=== PATIENT | male | born 1940 | race Caucasian/White ===

== ENCOUNTER 2016-08-29 13:06 | Inpatient (IN) | payer MEDICARE, MEDICAID ==
[2016-08-29 13:35] VITALS: BMI 29.9
[2016-08-29 13:57] LABS: BLOOD UREA NITROGEN 16 MG/DL (9-20); CALCULATED OSMOLALITY 273 MOs/Kg (270-290); CHLORIDE 100 mEq/L (98-107); GLUCOSE 176 MG/DL (70-99); SODIUM LEVEL 139 mEq/L (137-146); TOTAL PROTEIN 7.9 G/DL (6.3-8.2)
[2016-08-29 14:05] LABS: LEUKOCYTES/URINE NEG (NEGATIVE); NITRITE/URINE NEG (NEGATIVE); RBC/URINE 0-2 (0-2); URINE OCCULT BLOOD 1+ (NEG/TRACE); WBC/URINE 0-2 (0-2)
[2016-08-29 14:27] LABS: SEG NEUTROPHIL 83 % (45-76)
[2016-08-29] MEDS ORDERED: ONDANSETRON HCL 4 MG/2 ML VIAL IV ONE (16:07)
[2016-08-29] MEDS ORDERED: NS 1,000 ML IV ONE ×3 (16:07→19:25)
[2016-08-29] MEDS ORDERED: HYDROmorphone 1 MG INJECTION IV ONE (16:07)
--- NOTE | 2016-08-29 16:43 | EDPRACDOC ---
- General Information Information Source: Patient Mode Of Arrival: Car - History of Present Illness Onset: TODAY Pain Location: Reports: Epigastric, RUQ Pain Context: Reports: Spontaneous Pain Severity: Severe Pain Quality: Reports: Cramping, Sharp, Stabbing Pain Radiation: Reports: No Radiation Modifying Factors: improves with: Nothing Associated Signs & Symptoms: Reports: Nausea, Vomiting, Diarrhea <Jojo Burger - Last Filed: 08/29/16 19:24> <Junior Wu - Last Filed: 08/29/16 19:37> - General Information Chief Complaint: Abdominal Pain Stated Complaint: NAUSEA,VOMITING,WEAKNESS Time Seen by Provider: 08/29/16 16:02 Home Medications: Home Medications Hydrochlorothiazide 25 mg PO DAILY 12/02/15 Hydrocodone Bit/Acetaminophen [[place] 5-325 Tablet] 1 each PO Q4H #30 tab Metoprolol Tartrate 25 mg PO BID 12/02/15 Pantoprazole Sodium [Protonix] 40 mg PO DAILY 12/02/15 Tamsulosin HCl [Flomax] 0.4 mg PO DAILY 12/02/15 Sulfamethoxazole/Trimethoprim [Bactrim Ds Tablet] 1 tab PO BID #14 tab 08/17/16 Tramadol HCl [Ultram] 50 mg PO Q6H #14 tab 08/17/16 Allergies/Adverse Reactions: Allergies Allergy/AdvReac Type Severity Reaction Status Date / Time Sulfa (Sulfonamide Allergy Rash-Genera Verified 08/29/16 13:34 Antibiotics) lized - History of Present Illness HPI: PT PRESENTS TODAY WITH PERIUMBILICAL/RUQ PAIN THAT BEGAN THIS MORNING WITH ASSOCIATED N/V. SOME DIARRHEA. DENIES FEVER, CP, SHOB, DYSURIA. NO PMH OF ABDOMINAL SURGERIES. (Jojo Burger) ED Past Medical History - History Reviewed Yes Nurses notes reviewed and agree except as marked - Patient Medical History Cardiac History: Reports: Hypertension, Congestive Heart Failure GI/ History: Reports: Gastroesophageal Reflux Psychological History: Denies: Depression Systemic History: Reports: Cancer (skin cancer right ear) - Social Medical History Smoking Status: Former smoker <Jojo Burger - Last Filed: 08/29/16 19:24> EDM Review of Systems - Review of Systems ROS Negative Except as Marked: Yes All systems reviewed and were negative except as marked Constitutional: No Symptoms Reported Respiratory: No Symptoms Reported Cardiovascular: No Symptoms Reported Gastrointestinal: Nausea, Pain, Vomiting Genitourinary: No Symptoms Reported Neurological: No Symptoms Reported Musculoskeletal: No Symptoms Reported Integumentary: No Symptoms Reported <Jojo Burger - Last Filed: 08/29/16 19:24> - Physical Exam Constitutional: Alert (Awake), No apparent distress Oriented to: Time, Person, Place - HEENT Head: Normal Eye Exam: Normal Neck: Normal, Denies Pain, Midline - Respiratory/Cardiovascular Respiratory: Normal - CTA Cardiovascular: Normal - GI Auscultation: Decreased Palpation: Other (NOTED HERNIA TO MID ABDOMEN; REDUCIBLE; ALONG THE LINEA ALBA) Tenderness: Moderate, RUQ, Periumbilical Lacy's Sign: Positive - Musculoskeletal Back: Normal Extremities: Normal - Integumentary Skin: Jaundice (?) Lymphatics: Normal - Neurologic Cerebellar: Normal Mood Description: Normal Thought: Coherent Perception: Normal <Jojo Burger - Last Filed: 08/29/16 19:24> - Re-evaluation Re-evaluation 2 Re-evaluation Time: 19:24 - Results 08/29/16 13:32 08/29/16 13:32 <Jojo Burger - Last Filed: 08/29/16 19:24> - Re-evaluation Re-evaluation 1 Re-evaluation Time: 17:30 - Results 08/29/16 13:32 08/29/16 13:32 <Junior Wu - Last Filed: 08/29/16 19:37> - Re-evaluation Re-evaluation 2 PT HAS BEEN EASILY MANAGED BY 1 MG OF DILAUDID. NO VOMITING WHILE HERE. (Jojo Burger) Re-evaluation 1 ABD SOFT. NON-TENDER. (Junior Wu) - Results WBC 19.1 xk/uL (3.8-10.8) H 08/29/16 13:32 RBC 4.99 xM/uL (4.70-6.10) 08/29/16 13:32 Hgb 14.8 g/dL (14.0-18.0) 08/29/16 13:32 Hct 43.7 % (42-52) 08/29/16 13:32 MCV 88 fL (80-94) 08/29/16 13:32 MCH 29.7 pg (27-32) 08/29/16 13:32 MCHC 34.0 g/dl (33-36) 08/29/16 13:32 RDW 13.9 % (11.5-14.5) 08/29/16 13:32 Plt Count 230 xk/uL (130-400) 08/29/16 13:32 MPV 8.0 fL (7.4-10.4) 08/29/16 13:32 Neut % (Auto) Cancelled 08/29/16 13:32 Lymph % (Auto) Cancelled 08/29/16 13:32 [place] % (Auto) Cancelled 08/29/16 13:32 Eos % (Auto) Cancelled 08/29/16 13:32 Baso % (Auto) Cancelled 08/29/16 13:32 Absolute Neuts (auto) Cancelled 08/29/16 13:32 Absolute Lymphs (auto) Cancelled 08/29/16 13:32 Seg Neuts % (Manual) 83 % (45-76) H 08/29/16 13:32 Band Neutrophils % 15 % (0-5) H 08/29/16 13:32 Lymphocytes % (Manual) 1 % (17-44) L 08/29/16 13:32 Monocytes % (Manual) 1 % (0-10) 08/29/16 13:32 Absolute Neutrophils 18.72 xk/uL (1.7-8.2) H 08/29/16 13:32 Absolute Lymphocytes 0.19 xk/uL (0.65-4.75) L 08/29/16 13:32 Platelet Estimate Norm (NORMAL) 08/29/16 13:32 RBC Morphology Norm 08/29/16 13:32 Sodium 139 mEq/L (137-146) 08/29/16 13:32 Potassium 3.1 mEq/L (3.5-5.1) L 08/29/16 13:32 Chloride 100 mEq/L (98-107) 08/29/16 13:32 Carbon Dioxide 22 mMOL/L (22-33) 08/29/16 13:32 Anion Gap 20 mEq/L (8-16) H 08/29/16 13:32 BUN 16 MG/DL (9-20) 08/29/16 13:32 Creatinine 0.80 MG/DL (0.66-1.25) 08/29/16 13:32 Estimated GFR (MDRD) > 60 mL/min (>=60) 08/29/16 13:32 Glucose 176 MG/DL (70-99) H 08/29/16 13:32 Calculated Osmolality 273 MOs/Kg (270-290) 08/29/16 13:32 Lactic Acid 4.7 mEq/L (0.7-2.1) H* 08/29/16 16:35 Calcium 9.0 MG/DL (8.4-10.2) 08/29/16 13:32 Total Bilirubin 3.5 MG/DL (0.2-1.3) H 08/29/16 13:32 AST 531 IU/L (17-59) H 08/29/16 13:32 ALT 376 IU/L (21-72) H 08/29/16 13:32 Alkaline Phosphatase 124 IU/L (50-160) 08/29/16 13:32 Ammonia < 9.0 umol/L (9.0-30.0) L 08/29/16 16:35 Total Protein 7.9 G/DL (6.3-8.2) 08/29/16 13:32 Albumin 4.3 G/DL (3.5-5.0) 08/29/16 13:32 Lipase 17123 U/L (23-300) H 08/29/16 13:32 Urine Color Yellow 08/29/16 13:40 Urine Clarity Clear 08/29/16 13:40 Urine pH 5.0 (5.0-8.0) 08/29/16 13:40 Ur Specific [place] 1.005 (1.003-1.035) 08/29/16 13:40 Urine Protein Neg (NEG/TRACE) 08/29/16 13:40 Urine Glucose (UA) Neg (NEGATIVE) 08/29/16 13:40 Urine Ketones Neg (NEGATIVE) 08/29/16 13:40 Urine Occult Blood 1+ (NEG/TRACE) H 08/29/16 13:40 Urine Nitrite Neg (NEGATIVE) 08/29/16 13:40 Urine Bilirubin Neg (NEGATIVE) 08/29/16 13:40 Urine Urobilinogen <2.0 MG/DL (0-1) 08/29/16 13:40 Ur Leukocyte Esterase Neg (NEGATIVE) 08/29/16 13:40 Urine RBC 0-2 (0-2) 08/29/16 13:40 Urine WBC 0-2 (0-2) 08/29/16 13:40 Ur Epithelial Cells Occ 08/29/16 13:40 Urine Bacteria Few (NEG/FEW) 08/29/16 13:40 Urine Mucus Occ (NEG/OCC) 08/29/16 13:40 Lab Results 08/29/16 08/29/16 08/29/16 16:35 16:35 13:40 WBC RBC Hgb Hct MCV MCH MCHC RDW Plt Count MPV Neut % (Auto) Lymph % (Auto) [place] % (Auto) Eos % (Auto) Baso % (Auto) Absolute Neuts (auto) Absolute Lymphs (auto) Seg Neuts % (Manual) Band Neutrophils % Lymphocytes % (Manual) Monocytes % (Manual) Absolute Neutrophils Absolute Lymphocytes Platelet Estimate RBC Morphology Sodium Potassium Chloride Carbon Dioxide Anion Gap BUN Creatinine Estimated GFR (MDRD) Glucose Calculated Osmolality Lactic Acid 4.7 H* Calcium Total Bilirubin AST ALT Alkaline Phosphatase Ammonia < 9.0 L Total Protein Albumin Lipase Urine Color Yellow Urine Clarity Clear Urine pH 5.0 Ur Specific [place] 1.005 Urine Protein Neg Urine Glucose (UA) Neg Urine Ketones Neg Urine Occult Blood 1+ H Urine Nitrite Neg Urine Bilirubin Neg Urine Urobilinogen <2.0 Ur Leukocyte Esterase Neg Urine RBC 0-2 Urine WBC 0-2 Ur Epithelial Cells Occ Urine Bacteria Few Urine Mucus Occ 08/29/16 08/29/16 08/29/16 13:32 13:32 13:32 WBC 19.1 H RBC 4.99 Hgb 14.8 Hct 43.7 MCV 88 MCH 29.7 MCHC 34.0 RDW 13.9 Plt Count 230 MPV 8.0 Neut % (Auto) Cancelled Lymph % (Auto) Cancelled [place] % (Auto) Cancelled Eos % (Auto) Cancelled Baso % (Auto) Cancelled Absolute Neuts (auto) Cancelled Absolute Lymphs (auto) Cancelled Seg Neuts % (Manual) 83 H Band Neutrophils % 15 H Lymphocytes % (Manual) 1 L Monocytes % (Manual) 1 Absolute Neutrophils 18.72 H Absolute Lymphocytes 0.19 L Platelet Estimate Norm RBC Morphology Norm Sodium 139 Potassium 3.1 L Chloride 100 Carbon Dioxide 22 Anion Gap 20 H BUN 16 Creatinine 0.80 Estimated GFR (MDRD) > 60 Glucose 176 H Calculated Osmolality 273 Lactic Acid Calcium 9.0 Total Bilirubin 3.5 H AST 531 H ALT 376 H Alkaline Phosphatase 124 Ammonia Total Protein 7.9 Albumin 4.3 Lipase 73476 H Urine Color Urine Clarity Urine pH Ur Specific [place] Urine Protein Urine Glucose (UA) Urine Ketones Urine Occult Blood Urine Nitrite Urine Bilirubin Urine Urobilinogen Ur Leukocyte Esterase Urine RBC Urine WBC Ur Epithelial Cells Urine Bacteria Urine Mucus (Jojo Burger) (Junior Wu) <Jojo Burger - Last Filed: 08/29/16 19:24> - Departure Yes I personally saw and evaluated the patient. Disposition: Admit IP To This Hospital Decision to Admit Time: 19:37 Decision to admit date: 08/29/16 Decision to admit: from ED - Physician Consulted Hospitalist Time Called: 19:37 Provider Called: Timo Gutierrez Time [employer] Equipment Engineer Returned Call: 19:37 <Junior Wu - Last Filed: 08/29/16 19:37> - Departure Condition: Stable Final Diagnosis: Acute pancreatitis Qualifiers: Pancreatitis type: unspecified pancreatitis type Acute pancreatitis complication: unspecified Qualified Code(s): K85.90 - Acute pancreatitis without necrosis or infection, unspecified
--- NOTE | 2016-08-29 17:58 | DIRPT ---
CLINICAL DATA: Acute right upper quadrant abdominal pain. EXAM: CT ABDOMEN AND PELVIS WITH CONTRAST TECHNIQUE: Multidetector CT imaging of the abdomen and pelvis was performed using the standard protocol following bolus administration of intravenous contrast. CONTRAST: 100 mL of Isovue 370 intravenously. COMPARISON: CT scan of March 28, 2012. FINDINGS: Visualized lung bases are unremarkable. No significant osseous abnormality is noted. No gallstones are noted. Stable left hepatic cysts are noted. The spleen appears normal. Mild inflammatory changes are noted around the pancreas suggesting possible pancreatitis. Adrenal glands appear normal. Bilateral nonobstructive nephrolithiasis is noted. Bilateral simple renal cysts are noted. No hydronephrosis or renal obstruction is noted. 8 mm calculus is noted at right ureterovesical junction resulting in minimal dilatation of distal right ureter. The appendix appears normal. Atherosclerosis of abdominal aorta is noted without aneurysm formation. Mildly dilated proximal small bowel loop is noted which may represent focal ileus. This was present to some degree on prior exam. There is no definite evidence of bowel obstruction. Diverticulosis of descending and sigmoid colon is noted without inflammation. Urinary bladder appears normal. Prostatic calcifications are noted. No adenopathy is noted. IMPRESSION: Bilateral nonobstructive nephrolithiasis is noted. No hydronephrosis or renal obstruction is noted. 8 mm calculus is noted at right ureterovesical junction which results in minimal dilatation of distal right ureter. Atherosclerosis of abdominal aorta is noted without aneurysm formation. Diverticulosis of descending and sigmoid colon is noted without inflammation. Mild proximal small bowel dilatation is noted most consistent with ileus. Mild inflammatory changes are noted around the pancreas suggesting pancreatitis. No pseudocyst formation is seen at this time. Electronically Signed By: Cristóbal Alfredo Jr, M.D. On: 08/29/2016 17:55
[2016-08-29] MEDS ORDERED: Pharmacy Review for Metformin - IV Contrast Given SCH (18:00)
--- NOTE | 2016-08-29 18:36 | DIRPT ---
CLINICAL DATA: Right upper quadrant abdominal pain for 1 day. Acute pancreatitis on CT from earlier today. EXAM: US ABDOMEN LIMITED - RIGHT UPPER QUADRANT COMPARISON: CT abdomen/pelvis from earlier today. FINDINGS: Gallbladder: There are several tiny shadowing layering gallstones in the gallbladder measuring up to 3 mm in size. No gallbladder wall thickening, pericholecystic fluid or sonographic Lacy sign. Common bile duct: Diameter: 3 mm Liver: Liver parenchyma is diffusely markedly echogenic with posterior acoustic attenuation, in keeping with severe diffuse hepatic steatosis. There is a minimally complex 2.4 x 1.7 x 2.4 cm liver cyst in the lateral segment left liver lobe with thin internal septation. There is a separate minimally complex 1.9 x 1.5 x 1.4 cm liver cyst in the posterior lateral segment left liver lobe with thin internal septation. There is a separate minimally complex 1.6 x 1.6 x 1.4 cm liver cyst with thin internal septation in the lateral segment left liver lobe. No additional liver lesions are detected, noting decreased sensitivity in the setting of an echogenic liver. Incidentally noted is a simple 3.3 cm parapelvic renal cyst in the lower right renal sinus. IMPRESSION: 1. Cholelithiasis. No evidence of acute cholecystitis. 2. No biliary ductal dilatation. 3. Severe diffuse hepatic steatosis. 4. Benign-appearing minimally complex left liver cysts. 5. Incidental simple right renal cyst. Electronically Signed By: Jony Choudhary M.D. On: 08/29/2016 18:34
--- NOTE | 2016-08-29 21:47 | HISTPHYS ---
- Chief Complaint abdominal pain - History of Present Illness PRIMARY CARE PROVIDER: Vivienne Gale HPI: The patient is a 76 yo man who presents with abdominal pain. It started after he was taking an antibiotics. His left pinky finger got stuck in car door and had an injury, red and swollen. Started on an antibiotic he thinks it was Bactrim and took it for 8 days. Then started getting a rash with red dots all over. [place] weak. Developed abdominal pain. Onset: last few days. Duration: intermittent. Location: epigastric. Radiation: to back. Character: 8/10, sharp. Alleviated by: Nothing. Exacerbated by: Nothing. Associated Symptoms: Nausea. Vomiting. No diarrhea, constipation, or bloody stool. Possibly chills. No fever. No diaphoresis. Treatments: none at home except usual medications. Patient does not drink any alcohol now, he quit drinking many years ago. - Medical History Cardiac History: Reports: Hypertension, Congestive Heart Failure GI/ History: Reports: Gastroesophageal Reflux Systemic History: Reports: Cancer (skin cancer right ear) Psychological History: Denies: Depression - Medictions/Allergies Allergies Sulfa (Sulfonamide Antibiotics) Allergy (Verified 08/29/16 13:34) Rash-Generalized Current Medication List: Reviewed Home Medications Hydrochlorothiazide 25 mg PO DAILY 12/02/15 Metoprolol Tartrate 25 mg PO BID 12/02/15 Pantoprazole Sodium [Protonix] 40 mg PO DAILY 12/02/15 Tamsulosin HCl [Flomax] 0.4 mg PO DAILY 12/02/15 - Family History Reports: Hypertension (Father), Cancer (Grandmother), Stroke (Mother), Cardiac Disorders (Father) - Social History Smoking Status: Former smoker Social History: Denies: Alcohol Use, Substance Use Disorder - Review of Systems GENERAL: Possibly chills. No fever. No diaphoresis. Positive for fatigue/ malaise. HEENT: No ear pain or discharge. No nasal discharge or bleeding. No throat pain or swelling. No eye pain or eye redness. RESPIRATORY: No cough, wheezing, or shortness of breath. CARDIOVASCULAR: No chest pain or palpitations. GI: Abdominal pain, nausea, vomiting. No diarrhea, constipation, or bloody stool. NEUROLOGICAL: No headache or focal weakness. INTEGUMENT: no rashes, itching, or lesions. LYMPHATIC SYSTEM: no lymph node swelling or pain. MUSCULOSKELETAL: no pain or joint swelling. GENITOURINARY: No dysuria or hematuria. ENDOCRINE: No polyuria or polydipsia. HEME: No chronic anemia, bleeding, or easy bruising. - Physical Exam Vital Signs: Initial Vitals Temperature 98.6 F 08/29/16 13:28 Pulse Rate 108 08/29/16 13:28 Respiratory Rate 20 08/29/16 13:28 Blood Pressure 121/66 08/29/16 13:28 Pulse Oxygen Saturation 94 08/29/16 13:28 Vital Signs - 24 hr 08/29/16 08/29/16 08/29/16 13:28 16:28 17:08 Temperature 98.6 F Pulse Rate 108 96 96 Respiratory 20 20 20 Rate Blood Pressure 121/66 147/66 128/69 Pulse Oxygen 94 96 96 Saturation 08/29/16 08/29/16 08/29/16 17:34 18:37 19:37 Temperature Pulse Rate 92 96 94 Respiratory 18 18 18 Rate Blood Pressure 124/67 128/63 121/64 Pulse Oxygen 95 94 95 Saturation 08/29/16 20:37 Temperature Pulse Rate 96 Respiratory 20 Rate Blood Pressure 119/58 L Pulse Oxygen 94 Saturation Weight: 97.5 kg Height: 5 feet 11 inches BMI: 30 - Other Exam Other Exam Findings: GENERAL: Ill-appearing, well nourished, in acute distress. HEENT: Normocephalic, atraumatic; pupils equal and round. Nares patent, without discharge or bleeding. No oropharyngeal lesions or erythema. Mucous membranes are dry. NECK: is supple, no masses, trachea midline. RESPIRATORY: Clear to auscultation bilaterally. Chest wall movements are symmetric. No use of accessory muscles to breathe. No wheezing, rales, rhonchi. CARDIOVASCULAR: Normal S1, S2. Murmur 2/6 systolic. No rubs, or gallops. PMI non -displaced. Carotids: no carotid bruits. No bradycardia or tachycardia. DP pulses 2+ bilaterally. GI: soft, protuberant but non-distended. hypoactive bowel sounds. No hepatosplenomegaly. Epigastric and right upper quadrant tenderness. INTEGUMENT: Clean, dry, and intact. No rashes. No lesions. MUSCULOSKELETAL: Moving all extremities. No cyanosis. No clubbing. Edema: none bilaterally. NEUROLOGICAL: Cranial nerves 2-12 grossly intact. Motor 4/5 throughout. Reflexes : 2+ bilaterally. Babinski: toes downgoing bilaterally. Intact Finger to nose. Sensory grossly intact to light touch. Intact rapid alternating movements bilaterally. No pronator drift. PSYCHIATRIC: Fully oriented. Normal and appropriate affect. LYMPHATIC: No cervical lymphadenopathy. No supraclavicular lymphadenopathy. - Lab Results Laboratory Results - last 24 hr 08/29/16 08/29/16 08/29/16 13:32 13:32 13:32 WBC 19.1 H RBC 4.99 Hgb 14.8 Hct 43.7 MCV 88 MCH 29.7 MCHC 34.0 RDW 13.9 Plt Count 230 MPV 8.0 Neut % (Auto) Cancelled Lymph % (Auto) Cancelled [place] % (Auto) Cancelled Eos % (Auto) Cancelled Baso % (Auto) Cancelled Absolute Neuts (auto) Cancelled Absolute Lymphs (auto) Cancelled Seg Neuts % (Manual) 83 H Band Neutrophils % 15 H Lymphocytes % (Manual) 1 L Monocytes % (Manual) 1 Absolute Neutrophils 18.72 H Absolute Lymphocytes 0.19 L Platelet Estimate Norm RBC Morphology Norm Sodium 139 Potassium 3.1 L Chloride 100 Carbon Dioxide 22 Anion Gap 20 H BUN 16 Creatinine 0.80 Estimated GFR (MDRD) > 60 Glucose 176 H Calculated Osmolality 273 Lactic Acid Calcium 9.0 Total Bilirubin 3.5 H AST 531 H ALT 376 H Alkaline Phosphatase 124 Ammonia Total Protein 7.9 Albumin 4.3 Lipase 38272 H Urine Color Urine Clarity Urine pH Ur Specific [place] Urine Protein Urine Glucose (UA) Urine Ketones Urine Occult Blood Urine Nitrite Urine Bilirubin Urine Urobilinogen Ur Leukocyte Esterase Urine RBC Urine WBC Ur Epithelial Cells Urine Bacteria Urine Mucus 08/29/16 08/29/16 08/29/16 13:40 16:35 16:35 WBC RBC Hgb Hct MCV MCH MCHC RDW Plt Count MPV Neut % (Auto) Lymph % (Auto) [place] % (Auto) Eos % (Auto) Baso % (Auto) Absolute Neuts (auto) Absolute Lymphs (auto) Seg Neuts % (Manual) Band Neutrophils % Lymphocytes % (Manual) Monocytes % (Manual) Absolute Neutrophils Absolute Lymphocytes Platelet Estimate RBC Morphology Sodium Potassium Chloride Carbon Dioxide Anion Gap BUN Creatinine Estimated GFR (MDRD) Glucose Calculated Osmolality Lactic Acid 4.7 H* Calcium Total Bilirubin AST ALT Alkaline Phosphatase Ammonia < 9.0 L Total Protein Albumin Lipase Urine Color Yellow Urine Clarity Clear Urine pH 5.0 Ur Specific [place] 1.005 Urine Protein Neg Urine Glucose (UA) Neg Urine Ketones Neg Urine Occult Blood 1+ H Urine Nitrite Neg Urine Bilirubin Neg Urine Urobilinogen <2.0 Ur Leukocyte Esterase Neg Urine RBC 0-2 Urine WBC 0-2 Ur Epithelial Cells Occ Urine Bacteria Few Urine Mucus Occ 08/29/16 21:00 WBC RBC Hgb Hct MCV MCH MCHC RDW Plt Count MPV Neut % (Auto) Lymph % (Auto) [place] % (Auto) Eos % (Auto) Baso % (Auto) Absolute Neuts (auto) Absolute Lymphs (auto) Seg Neuts % (Manual) Band Neutrophils % Lymphocytes % (Manual) Monocytes % (Manual) Absolute Neutrophils Absolute Lymphocytes Platelet Estimate RBC Morphology Sodium Potassium Chloride Carbon Dioxide Anion Gap BUN Creatinine Estimated GFR (MDRD) Glucose Calculated Osmolality Lactic Acid 3.2 H Calcium Total Bilirubin AST ALT Alkaline Phosphatase Ammonia Total Protein Albumin Lipase Urine Color Urine Clarity Urine pH Ur Specific [place] Urine Protein Urine Glucose (UA) Urine Ketones Urine Occult Blood Urine Nitrite Urine Bilirubin Urine Urobilinogen Ur Leukocyte Esterase Urine RBC Urine WBC Ur Epithelial Cells Urine Bacteria Urine Mucus - Diagnostic Findings EXAM: US ABDOMEN LIMITED - RIGHT UPPER QUADRANT COMPARISON: CT abdomen/pelvis from earlier today. FINDINGS: Gallbladder: There are several tiny shadowing layering gallstones in the gallbladder measuring up to 3 mm in size. No gallbladder wall thickening, pericholecystic fluid or sonographic Lacy sign. Common bile duct: Diameter: 3 mm Liver: Liver parenchyma is diffusely markedly echogenic with posterior acoustic attenuation, in keeping with severe diffuse hepatic steatosis. There is a minimally complex 2.4 x 1.7 x 2.4 cm liver cyst in the lateral segment left liver lobe with thin internal septation. There is a separate minimally complex 1.9 x 1.5 x 1.4 cm liver cyst in the posterior lateral segment left liver lobe with thin internal septation. There is a separate minimally complex 1.6 x 1.6 x 1.4 cm liver cyst with thin internal septation in the lateral segment left liver lobe. No additional liver lesions are detected, noting decreased sensitivity in the setting of an echogenic liver. Incidentally noted is a simple 3.3 cm parapelvic renal cyst in the lower right renal sinus. IMPRESSION: 1. Cholelithiasis. No evidence of acute cholecystitis. 2. No biliary ductal dilatation. 3. Severe diffuse hepatic steatosis. 4. Benign-appearing minimally complex left liver cysts. 5. Incidental simple right renal cyst. EXAM: CT ABDOMEN AND PELVIS WITH CONTRAST TECHNIQUE: Multidetector CT imaging of the abdomen and pelvis was performed using the standard protocol following bolus administration of intravenous contrast. CONTRAST: 100 mL of Isovue 370 intravenously. COMPARISON: CT scan of March 28, 2012. FINDINGS: Visualized lung bases are unremarkable. No significant osseous abnormality is noted. No gallstones are noted. Stable left hepatic cysts are noted. The spleen appears normal. Mild inflammatory changes are noted around the pancreas suggesting possible pancreatitis. Adrenal glands appear normal. Bilateral nonobstructive nephrolithiasis is noted. Bilateral simple renal cysts are noted. No hydronephrosis or renal obstruction is noted. 8 mm calculus is noted at right ureterovesical junction resulting in minimal dilatation of distal right ureter. The appendix appears normal. Atherosclerosis of abdominal aorta is noted without aneurysm formation. Mildly dilated proximal small bowel loop is noted which may represent focal ileus. This was present to some degree on prior exam. There is no definite evidence of bowel obstruction. Diverticulosis of descending and sigmoid colon is noted without inflammation. Urinary bladder appears normal. Prostatic calcifications are noted. No adenopathy is noted. IMPRESSION: Bilateral nonobstructive nephrolithiasis is noted. No hydronephrosis or renal obstruction is noted. 8 mm calculus is noted at right ureterovesical junction which results in minimal dilatation of distal right ureter. Atherosclerosis of abdominal aorta is noted without aneurysm formation. Diverticulosis of descending and sigmoid colon is noted without inflammation. Mild proximal small bowel dilatation is noted most consistent with ileus. Mild inflammatory changes are noted around the pancreas suggesting pancreatitis. No pseudocyst formation is seen at this time. - Assessment (1) Acute pancreatitis K85.90 - ACUTE PANCREATITIS WITHOUT NECROSIS OR INFECTION, UNSP Acute Present on Admission: Yes Qualifiers: Pancreatitis type: unspecified pancreatitis type Acute pancreatitis complication: unspecified Qualified Code(s): K85.90 - Acute pancreatitis without necrosis or infection, unspecified Plan: NPO except ice chips. IVFs. IV pain medication. Monitor labs. (2) Leukocytosis D72.829 - ELEVATED WHITE BLOOD CELL COUNT, UNSPECIFIED Acute Present on Admission: Yes Could be due to the pancreatitis but could also indicate infection. Plan: Cultures ordered. Empiric IV Zosyn. (3) SIRS (systemic inflammatory response syndrome) R65.10 - SIRS OF NON-INFECTIOUS ORIGIN W/O ACUTE ORGAN DYSFUNCTION Acute Present on Admission: Yes Plan: Monitor labs and vitals. IVFs. (4) Hypokalemia E87.6 - HYPOKALEMIA Acute Present on Admission: Yes Replace. (5) Lactic acid acidosis E87.2 - ACIDOSIS Acute Present on Admission: Yes Likely related to acute issues. Plan: Monitor. Case Care Discussed with: Patient, Consultants (GI: Dr. Jalloh), Nursing Staff
[2016-08-29] MEDS ORDERED: PIPERACILLIN AND TAZOBACTAM 4.5 GM in D5W 100 ML IV SCH (22:00)
[2016-08-29] MEDS ORDERED: Vaccine Screening Complete SCH (23:00)
[2016-08-30] MEDS ORDERED: BENZONATATE 100 MG PERLES PO PRN (00:38)
[2016-08-30] MEDS ORDERED: BISACODYL 5 MG TAB PO PRN (00:38)
[2016-08-30] MEDS ORDERED: ONDANSETRON HCL 4 MG/2 ML VIAL IV PRN (00:38)
[2016-08-30] MEDS ORDERED: PROMETHAZINE 25 MG/ML VIAL IV PRN (00:38)
[2016-08-30] MEDS ORDERED: SENNA CONCENTRATE TAB PO PRN (00:38)
[2016-08-30] MEDS ORDERED: ACETAMINOPHEN 325 MG/TAB TABLET PO PRN (00:38)
[2016-08-30] MEDS ORDERED: SIMETHICONE 80 MG TAB PO PRN (00:38)
[2016-08-30] MEDS ORDERED: GUAIFEN 100 MG-DEXTROMETH 10 MG PER 5 ML PO PRN (00:38)
[2016-08-30] MEDS ORDERED: TEMAZEPAM 15 MG CAP PO PRN (00:38)
[2016-08-30] MEDS ORDERED: ACETAMINOPHEN 325 MG SUPP PR PRN (00:38)
[2016-08-30] MEDS: NS 1,000 ML IV SCH ×4 (01:24→20:35)
[2016-08-30] MEDS: MORPHINE 2 MG/ML INJECTION IV PRN ×4 (02:38→21:47)
[2016-08-30] MEDS: PANTOPRAZOLE 40 MG TAB PO SCH (06:26)
[2016-08-30 07:27] LABS: MPV 8.3 fL (7.4-10.4)
[2016-08-30 07:53] LABS: BLOOD UREA NITROGEN 12 MG/DL (9-20); CALC CORRECTED 9.2 MG/DL (8.4-10.2); CALCIUM 8.5 MG/DL (8.4-10.2); CALCULATED OSMOLALITY 268 MOs/Kg (270-290); CHLORIDE 103 mEq/L (98-107); GLUCOSE 106 MG/DL (70-99); SODIUM LEVEL 139 mEq/L (137-146); TOTAL PROTEIN 6.1 G/DL (6.3-8.2)
[2016-08-30] MEDS: TAMSULOSIN HCL 0.4 MG CAP PO SCH (08:21)
[2016-08-30] MEDS: PIPERACILLIN AND TAZOBACTAM 4.5 GM in D5W 100 ML IV SCH ×2 (08:21→16:09)
[2016-08-30] MEDS: METOPROLOL TARTRATE 25 MG TAB PO SCH ×2 (08:22→22:36)
--- NOTE | 2016-08-30 16:15 | PCM.CONSGI ---
Consult Date: 08/30/16 Consult Requesting Physician: Timo Gutierrez Consult Reason: Abdominal Pain - History of Present Illness 76-year-old very pleasant white male admitted with abdominal pain associated with nausea vomiting. He came into the emergency room and was found to have pancreatitis by means of significant elevation of lipase. He also had abnormal liver function tests along with mild obstructive jaundice. He underwent ultrasound showing cholelithiasis followed by CT scan of the abdomen and pelvis which revealed fatty liver. There was no intra or extrahepatic bile ductal dilatation He was treated with IV fluids, IV antibiotics. He has done significantly better over the last 24 hours. He denies having any further nausea vomiting or significant abdominal pain. He did have flatus. He denies having any recent history of alcohol use. He did have previous history of alcohol abuse 30-40 years ago. Denies having any similar problems. - Past Medical History Cardiac History: Reports: Hypertension GI/ History: Reports: GERD, Kidney Stones, Other (Obesity, fatty liver) Psychological History: Denies: Alcoholism, Substance Use Disorder - Family History Family History: Reports: Cardiac Disorders (Father), Cancer (Grandmother), Hypertension (Father), Stroke (Mother). Denies: Seizures - Allergies Allergies Sulfa (Sulfonamide Antibiotics) Allergy (Verified 08/29/16 13:34) Rash-Generalized - Medications Home Medications Hydrochlorothiazide 25 mg PO DAILY 12/02/15 Metoprolol Tartrate 25 mg PO BID 12/02/15 Pantoprazole Sodium [Protonix] 40 mg PO DAILY 12/02/15 Tamsulosin HCl [Flomax] 0.4 mg PO DAILY 12/02/15 - Social History Smoking Status: Former smoker Social History: Denies: Alcohol Use, Substance Use Disorder - Review of Systems Constitutional: Other (No night sweats.). negative: Chills, Fever, Weight loss (Recent) Mouth: negative: Pain Cardiovascular: negative: Chest Pain, Orthopnea, PND Gastrointestinal: Other Genitourinary: Other (Denies polyuria.). negative: Dysuria Neurological: Other (Denies loss of consciousness.). negative: Seizure Allergic/Immunologic: negative: Hives, Itching Hematologic: negative: Easy Bruising - Exam Vital Signs: Temperature: 98.0 F (08/30/16 10:15) HR: 78 (08/30/16 14:00) RR: 20 (08/30/16 06:00) BP: 133/72 (08/30/16 08:22) Pulse Ox: 95 (08/30/16 10:15) General: Alert, Oriented x3, Cooperative, No acute distress HEENT: Normal, Icteric Sclera, Other (No Jaundice). negative: Pallor Cardiovascular: Normal S1, Normal S2, Other (No S3 or S4.). negative: No murmurs Gastrointestinal: Soft, Bowel Sounds (normal), Tender (Mild epigastric tenderness), Other (No ascites. Good bowel sounds). negative: Guarding, Rigid , Hepatosplenomegaly Extremities: Normal pulses. negative: Swelling, Edema Skin: Warm,Dry and Intact Neurological: Normal speech, Other (No focal neurologic deficits.) Psych/Mental Status: Normal Affect, Cooperative - Labs Result Diagrams: 08/30/16 06:51 08/30/16 06:51 Laboratory Tests 08/29/16 08/29/16 08/29/16 13:32 13:32 13:32 WBC 19.1 H Hgb 14.8 Plt Count 230 Seg Neuts % (Manual) 83 H Band Neutrophils % 15 H Lymphocytes % (Manual) 1 L Absolute Neutrophils 18.72 H Sodium 139 Potassium 3.1 L Chloride 100 Carbon Dioxide 22 Anion Gap 20 H BUN 16 Creatinine 0.80 Estimated GFR (MDRD) > 60 Glucose 176 H Calculated Osmolality 273 Calcium 9.0 Magnesium Total Bilirubin 3.5 H AST 531 H ALT 376 H Alkaline Phosphatase 124 Total Protein 7.9 Albumin 4.3 Lipase 33965 H 08/29/16 08/30/16 08/30/16 22:10 06:51 06:51 WBC 12.0 H Hgb 12.8 L D Plt Count Seg Neuts % (Manual) Band Neutrophils % Lymphocytes % (Manual) Absolute Neutrophils Sodium Potassium Chloride Carbon Dioxide Anion Gap BUN Creatinine Estimated GFR (MDRD) Glucose 106 H Calculated Osmolality 268 L Calcium Magnesium 1.80 Total Bilirubin 4.7 H AST 236 H ALT 310 H Alkaline Phosphatase 104 Total Protein 6.1 L Albumin 3.3 L Lipase Exam(s): [id number] CT/CT ABD-PELV W/IV CM CLINICAL DATA: Acute right upper quadrant abdominal pain. EXAM: CT ABDOMEN AND PELVIS WITH CONTRAST TECHNIQUE: Multidetector CT imaging of the abdomen and pelvis was performed using the standard protocol following bolus administration of intravenous contrast. CONTRAST: 100 mL of Isovue 370 intravenously. COMPARISON: CT scan of March 28, 2012. FINDINGS: Visualized lung bases are unremarkable. No significant osseous abnormality is noted. No gallstones are noted. Stable left hepatic cysts are noted. The spleen appears normal. Mild inflammatory changes are noted around the pancreas suggesting possible pancreatitis. Adrenal glands appear normal. Bilateral nonobstructive nephrolithiasis is noted. Bilateral simple renal cysts are noted. No hydronephrosis or renal obstruction is noted. 8 mm calculus is noted at right ureterovesical junction resulting in minimal dilatation of distal right ureter. The appendix appears normal. Atherosclerosis of abdominal aorta is noted without aneurysm formation. Mildly dilated proximal small bowel loop is noted which may represent focal ileus. This was present to some degree on prior exam. There is no definite evidence of bowel obstruction. Diverticulosis of descending and sigmoid colon is noted without inflammation. Urinary bladder appears normal. Prostatic calcifications are noted. No adenopathy is noted. IMPRESSION: Bilateral nonobstructive nephrolithiasis is noted. No hydronephrosis or renal obstruction is noted. 8 mm calculus is noted at right ureterovesical junction which results in minimal dilatation of distal right ureter. Atherosclerosis of abdominal aorta is noted without aneurysm formation. Diverticulosis of descending and sigmoid colon is noted without inflammation. Mild proximal small bowel dilatation is noted most consistent with ileus. Mild inflammatory changes are noted around the pancreas suggesting pancreatitis. No pseudocyst formation is seen at this time. Exam(s): [id number] US/US GALLBLADDER-BILIARY (RUQ) CLINICAL DATA: Right upper quadrant abdominal pain for 1 day. Acute pancreatitis on CT from earlier today. EXAM: US ABDOMEN LIMITED - RIGHT UPPER QUADRANT COMPARISON: CT abdomen/pelvis from earlier today. FINDINGS: Gallbladder: There are several tiny shadowing layering gallstones in the gallbladder measuring up to 3 mm in size. No gallbladder wall thickening, pericholecystic fluid or sonographic Lacy sign. Common bile duct: Diameter: 3 mm Liver: Liver parenchyma is diffusely markedly echogenic with posterior acoustic attenuation, in keeping with severe diffuse hepatic steatosis. There is a minimally complex 2.4 x 1.7 x 2.4 cm liver cyst in the lateral segment left liver lobe with thin internal septation. There is a separate minimally complex 1.9 x 1.5 x 1.4 cm liver cyst in the posterior lateral segment left liver lobe with thin internal septation. There is a separate minimally complex 1.6 x 1.6 x 1.4 cm liver cyst with thin internal septation in the lateral segment left liver lobe. No additional liver lesions are detected, noting decreased sensitivity in the setting of an echogenic liver. Incidentally noted is a simple 3.3 cm parapelvic renal cyst in the lower right renal sinus. IMPRESSION: 1. Cholelithiasis. No evidence of acute cholecystitis. 2. No biliary ductal dilatation. 3. Severe diffuse hepatic steatosis. 4. Benign-appearing minimally complex left liver cysts. 5. Incidental simple right renal cyst - Assessment and Plan (1) Acute pancreatitis Acute K85.90 - ACUTE PANCREATITIS WITHOUT NECROSIS OR INFECTION, UNSP unspecified pancreatitis type unspecified K85.90 - Acute pancreatitis without necrosis or infection, unspecified Comment: Likely biliary in etiology. He appears to be getting better. His bilirubin has gone up slightly. His liver function tests are coming down well. Clinically he looks much better. Also patient was given Bactrim, I doubt if that is the etiology (2) Hypokalemia Acute E87.6 - HYPOKALEMIA (3) Lactic acid acidosis Acute E87.2 - ACIDOSIS (4) Leukocytosis Acute D72.829 - ELEVATED WHITE BLOOD CELL COUNT, UNSPECIFIED (5) SIRS (systemic inflammatory response syndrome) Acute R65.10 - SIRS OF NON-INFECTIOUS ORIGIN W/O ACUTE ORGAN DYSFUNCTION (6) Fracture of fifth metacarpal bone of left hand Acute S62.307A - UNSP FRACTURE OF FIFTH METACARPAL BONE, LEFT HAND, INIT initial encounter open other portion of metacarpal nondisplaced S62.397B - Other fracture of fifth metacarpal bone, left hand, initial encounter for open fracture Recommendations: 1. IV fluids 2. IV pain medications 3. Nausea control 4. Would continue to monitor liver function tests, lipase. Watch for any complications from acute pancreatitis. I have ordered more labs for tomorrow morning. 5. Agree with IV antibiotics. 6. May need surgical consultation near discharge for possible laparoscopic cholecystectomy with intra op cholangiogram. Clinically biochemically, he appears to have passed the stone.
--- NOTE | 2016-08-30 21:48 | GENMEDPROG ---
Chief Complaint: A pancreatitis, leukocytosis, SIRS, hypokalemia Currently: Reports: Nausea and Vomiting, Abdominal Pain - Physical Examination Vital Signs and I&O: Last Vital Signs Temp 99.2 F 08/30/16 18:25 Pulse 91 08/30/16 18:25 Resp 18 08/30/16 18:25 BP 140/53 L 08/30/16 18:25 Pulse Ox 93 08/30/16 18:25 Oxygen Pulse Oxygen Saturation 93 O2 Device Room Air Oxygen Flow Rate Fraction of Inspired Oxygen ( FIO2) Intake & Output 08/27/16 08/28/16 08/29/16 08/30/16 23:59 23:59 23:59 23:59 Intake Total 3000 2190 Output Total 325 775 Balance 2675 1415 Patient's weight 96.706 kg General: Alert, Oriented x3, Cooperative, No acute distress HEENT: Normal, PERRLA, EOMI, Anicteric Sclera, Mucous membr. moist/pink Neck: Full range of motion, Normal Trachea alignment, Normal inspection, No Masses palpable, No Thyromegaly palpable, Supple Lymphatics: Normal Respiratory: Normal - CTA, Diminished Cardiovascular: Regular rate and rhythm, Normal S1, Normal S2 GI: Soft, No masses, Tenderness (RUQ/epigastrium). negative: Normal bowel sounds Extremities/Musculoskeletal: Normal pulses. negative: Swelling, Edema Skin: Warm,Dry and Intact Neurological: Normal speech, Strength at 5/5 X4 ext, Normal tone, Cranial nerves 3-12 NL, Drowsy Psych/Mental Status: Normal Affect, Cooperative, Somnolent, Lethargic Lab/DI/Studies Reviewed: Laboratory Tests 08/29/16 08/30/16 08/30/16 22:10 06:51 06:51 WBC 12.0 H Hgb 12.8 L D Hct 38.2 L Plt Count 198 Sodium 139 Potassium 3.1 L Chloride 103 Carbon Dioxide 26 Anion Gap 13 BUN 12 Creatinine 0.80 Estimated GFR (MDRD) > 60 Glucose 106 H Calculated Osmolality 268 L Calcium 8.5 Corrected Calcium 9.2 Magnesium 1.80 Total Bilirubin 4.7 H Direct Bilirubin AST 236 H ALT 310 H Alkaline Phosphatase 104 Total Protein 6.1 L Albumin 3.3 L Lipase 08/30/16 08/30/16 06:51 06:51 WBC Hgb Hct Plt Count Sodium Potassium Chloride Carbon Dioxide Anion Gap BUN Creatinine Estimated GFR (MDRD) Glucose Calculated Osmolality Calcium Corrected Calcium Magnesium Total Bilirubin Direct Bilirubin 2.50 H AST ALT Alkaline Phosphatase Total Protein Albumin Lipase 4122 H - Assessment (1) Acute pancreatitis Acute K85.90 - ACUTE PANCREATITIS WITHOUT NECROSIS OR INFECTION, UNSP Qualifiers: Pancreatitis type: unspecified pancreatitis type Acute pancreatitis complication: unspecified Qualified Code(s): K85.90 - Acute pancreatitis without necrosis or infection, unspecified Comment/Plan: NPO except ice chips. IVFs. IV pain medication. Monitor labs. (2) Hypokalemia Acute E87.6 - HYPOKALEMIA Comment/Plan: Replace. (3) Lactic acid acidosis Acute E87.2 - ACIDOSIS Comment/Plan: Likely related to acute issues. Plan:Hydrate and monitor (4) Leukocytosis Acute D72.829 - ELEVATED WHITE BLOOD CELL COUNT, UNSPECIFIED Comment/Plan: Could be due to the pancreatitis but could also indicate infection. Plan:Cultures ordered. Empiric IV Zosyn. (5) SIRS (systemic inflammatory response syndrome) Acute R65.10 - SIRS OF NON-INFECTIOUS ORIGIN W/O ACUTE ORGAN DYSFUNCTION Comment/Plan: Plan: Monitor labs and vitals. hydrate with IVFs.
[2016-08-31] MEDS: PIPERACILLIN AND TAZOBACTAM 4.5 GM in D5W 100 ML IV SCH ×3 (00:57→16:58)
[2016-08-31] MEDS: NS 1,000 ML IV SCH ×4 (02:00→22:06)
[2016-08-31] MEDS: PANTOPRAZOLE 40 MG TAB PO SCH (05:12)
[2016-08-31] MEDS: TAMSULOSIN HCL 0.4 MG CAP PO SCH (07:52)
[2016-08-31] MEDS: METOPROLOL TARTRATE 25 MG TAB PO SCH ×2 (07:52→21:22)
--- NOTE | 2016-08-31 09:50 | GENMEDPROG ---
Chief Complaint: pancreatitis, hypokalemia, abdominal pain, open fracture L hand 5th digit Currently: Reports: Nausea and Vomiting, Abdominal Pain - Physical Examination Vital Signs and I&O: Last Vital Signs Temp 99.2 F 08/31/16 09:15 Pulse 78 08/31/16 09:15 Resp 20 08/31/16 09:15 BP 129/61 08/31/16 09:15 Pulse Ox 94 08/31/16 09:15 Oxygen Pulse Oxygen Saturation 94 O2 Device Room Air Oxygen Flow Rate Fraction of Inspired Oxygen ( FIO2) Intake & Output 08/28/16 08/29/16 08/30/16 08/31/16 23:59 23:59 23:59 23:59 Intake Total 3000 2310 1375 Output Total 325 1225 250 Balance 2675 1085 1125 Patient's weight 96.706 kg 97.579 kg General: Alert, Oriented x3, Cooperative, No acute distress HEENT: Normal, PERRLA, EOMI, Anicteric Sclera, Mucous membr. moist/pink Neck: Full range of motion, Normal Trachea alignment, Normal inspection, No Masses palpable, No Thyromegaly palpable, Supple Lymphatics: Normal Respiratory: Normal - CTA, Diminished Cardiovascular: Regular rate and rhythm, Normal S1, Normal S2 GI: Soft, No masses, Tenderness (RUQ/epigastrium). negative: Normal bowel sounds Extremities/Musculoskeletal: Normal pulses. negative: Swelling, Edema Skin: Warm,Dry and Intact Neurological: Normal speech, Strength at 5/5 X4 ext, Normal tone, Cranial nerves 3-12 NL, Drowsy Psych/Mental Status: Normal Affect, Cooperative, Somnolent, Lethargic - Assessment (1) Acute pancreatitis Acute K85.90 - ACUTE PANCREATITIS WITHOUT NECROSIS OR INFECTION, UNSP Qualifiers: Pancreatitis type: unspecified pancreatitis type Acute pancreatitis complication: unspecified Qualified Code(s): K85.90 - Acute pancreatitis without necrosis or infection, unspecified Comment/Plan: Biliary pancreatitis - discussed with patient and family why he will need gallbladder removed. Dr. Palomares has been notified by Dr. Jalloh, he will see the patient tomorrow. Lipase levels are improving. (2) Hypokalemia Acute E87.6 - HYPOKALEMIA Comment/Plan: Replace. (3) Lactic acid acidosis Acute E87.2 - ACIDOSIS Comment/Plan: Likely related to acute issues. Plan:Hydrate and monitor (4) Leukocytosis Acute D72.829 - ELEVATED WHITE BLOOD CELL COUNT, UNSPECIFIED Comment/Plan: Could be due to the pancreatitis but could also indicate infection. Plan:Cultures ordered. Empiric IV Zosyn. (5) SIRS (systemic inflammatory response syndrome) Acute R65.10 - SIRS OF NON-INFECTIOUS ORIGIN W/O ACUTE ORGAN DYSFUNCTION Comment/Plan: Plan: Monitor labs and vitals. hydrate with IVFs. (6) Fracture of distal phalanx of finger of left hand Chronic S62.639A - DISP FX OF DISTAL PHALANX OF UNSP FINGER, INIT FOR CLOS FX Comment/Plan: This injury is 2 weeks old- it is an open fracture, comminuted , but should heal without treatment other than splinting for protection and antibiotics.
[2016-08-31 09:58] LABS: AUTOMATED BASOPHIL 0.3 % (0-2); AUTOMATED EOSINOPHIL 0.4 % (0-5); AUTOMATED LYMPH 10.8 % (17-44); AUTOMATED MONOCYTE 6.5 % (3-10)
[2016-08-31 10:15] LABS: BLOOD UREA NITROGEN 14 MG/DL (9-20); CALC CORRECTED 9.1 MG/DL (8.4-10.2); CALCIUM 8.1 MG/DL (8.4-10.2); CALCULATED OSMOLALITY 265 MOs/Kg (270-290); CHLORIDE 104 mEq/L (98-107); GLUCOSE 100 MG/DL (70-99); SODIUM LEVEL 137 mEq/L (137-146); TOTAL PROTEIN 5.8 G/DL (6.3-8.2)
--- NOTE | 2016-08-31 12:05 | PCM.GIPROG ---
Progress Note (GI) Chief Complaint: Patient feels much better today. He has been ambulating as well.. He did have a small bowel movement.. He denies having any nausea or vomiting. He would like to have something to drink. On review, his liver function tests are coming down well. His lipase is almost back to normal. - Physical Exam Vital Signs: Temperature: 99.2 F (08/31/16 09:15) HR: 78 (08/31/16 09:15) RR: 20 (08/31/16 09:15) BP: 129/61 (08/31/16 09:15) Pulse Ox: 94 (08/31/16 09:15) General: Alert, Oriented x3, Cooperative, No acute distress HEENT: Normal, Other (No Jaundice). negative: Pallor Cardiovascular: Normal S1, Normal S2, Other (No S3 or S4.). negative: No murmurs Gastrointestinal: Soft, Bowel Sounds (Normal), Other (No ascites.). negative: Tender, Hepatosplenomegaly Extremities: Normal pulses. negative: Swelling, Edema Skin: Warm,Dry and Intact Neurological: Normal speech, Other (No focal neurologic deficits.) Psych/Mental Status: Normal Affect, Cooperative Result Diagrams: 08/31/16 09:11 08/31/16 09:11 - Impression and Plan (1) Acute pancreatitis Acute K85.90 - ACUTE PANCREATITIS WITHOUT NECROSIS OR INFECTION, UNSP Present on Admission: Yes unspecified pancreatitis type unspecified K85.90 - Acute pancreatitis without necrosis or infection, unspecified Comment: Biliary pancreatitis (2) Hypokalemia Acute E87.6 - HYPOKALEMIA Present on Admission: Yes Comment: Replace. (3) Lactic acid acidosis Acute E87.2 - ACIDOSIS Present on Admission: Yes Comment: Likely related to acute issues. Plan:Hydrate and monitor (4) Leukocytosis Acute D72.829 - ELEVATED WHITE BLOOD CELL COUNT, UNSPECIFIED Present on Admission: Yes Comment: Could be due to the pancreatitis but could also indicate infection. Plan:Cultures ordered. Empiric IV Zosyn. (5) SIRS (systemic inflammatory response syndrome) Acute R65.10 - SIRS OF NON-INFECTIOUS ORIGIN W/O ACUTE ORGAN DYSFUNCTION Present on Admission: Yes Comment: Plan: Monitor labs and vitals. hydrate with IVFs. (6) Fracture of fifth metacarpal bone of left hand Acute S62.307A - UNSP FRACTURE OF FIFTH METACARPAL BONE, LEFT HAND, INIT initial encounter open other portion of metacarpal nondisplaced S62.397B - Other fracture of fifth metacarpal bone, left hand, initial encounter for open fracture Plan: 1. clear liquid diet. Advance to full liquid diet. 2. Monitor liver function tests, lipase and other labs. 3. Continue IV fluids. Watch for any fluid overload. 4. Consult Dr. Palomares - for possible laparoscopic cholecystectomy with intra op cholangiogram for next week. I have discussed with him. 5. Will follow along.
[2016-08-31] MEDS ORDERED: FUROSEMIDE 40 MG/4 ML VIAL IV ONE (17:18)
[2016-09-01] MEDS: PIPERACILLIN AND TAZOBACTAM 4.5 GM in D5W 100 ML IV SCH ×3 (00:59→17:15)
[2016-09-01] MEDS: NS 1,000 ML IV SCH ×2 (01:04→07:56)
[2016-09-01] MEDS: PANTOPRAZOLE 40 MG TAB PO SCH (05:45)
[2016-09-01] MEDS: METOPROLOL TARTRATE 25 MG TAB PO SCH ×2 (07:58→20:26)
[2016-09-01] MEDS: TAMSULOSIN HCL 0.4 MG CAP PO SCH (07:58)
--- NOTE | 2016-09-01 11:51 | PCM.SURGCO ---
Consult Reason: Abdominal Pain - History of Present Illness 76 YO WM with Epigastric abdominal pain. Who came to ER and was found to have pancreatitis. The pain was sharp, 8/10, and persistent. Accompanied by N/V. He was found to have gallstones as well. He has improved during this admission but will require cholecystectomy. Chief Complaint: abdominal pain - Past Medical and Surgical History Cardiac History: Reports: Hypertension, Congestive Heart Failure GI/ History: Reports: Gastroesophageal Reflux Systemic History: Reports: Cancer (skin cancer right ear) Psychological History: Denies: Depression, Alcoholism, Substance Use Disorder Neurological History: Denies: Cerebrovascular Accident, Seizures, Dementia Allergies Sulfa (Sulfonamide Antibiotics) Allergy (Verified 08/29/16 13:34) Rash-Generalized Home Medications Hydrochlorothiazide 25 mg PO DAILY 12/02/15 Metoprolol Tartrate 25 mg PO BID 12/02/15 Pantoprazole Sodium [Protonix] 40 mg PO DAILY 12/02/15 Tamsulosin HCl [Flomax] 0.4 mg PO DAILY 12/02/15 - Social History Smoking Status: Former smoker Social History: Denies: Alcohol Use, Substance Use Disorder - Family History Reports: Hypertension (Father), Cancer (Grandmother), Stroke (Mother), Cardiac Disorders (Father) - Review of Systems Constitutional: Fatigue, Loss of Appetite. negative: Chills, Fever Eyes: negative: Blurred Vision, Pain Ears: negative: Hearing Loss, Tinnitus Nose: negative: Congestion, Discharge Throat/Neck: Hoarseness. negative: Masses Respiratory: negative: Cough, Shortness of Breath Cardiovascular: negative: Chest Pain, Edema, Palpitations Gastrointestinal: Nausea, Vomiting, Abdominal Pain. negative: Diarrhea Genitourinary: negative: Dysuria, Hematuria Neurological: negative: Dizziness, Headache, Seizure Musculoskeletal:: Arthritis, Joint Pain. negative: Muscle Pain Hematologic: negative: Lymphadenopathy, Easy Bruising, Easy Bleeding Endocrine: negative: Weight Gain, Weight Loss, Excessive Sweating, Heat Intolerance, Cold Intolerance - Physical Exam Vital Signs: Initial Vitals Temperature 98.6 F 08/29/16 13:28 Pulse Rate 108 08/29/16 13:28 Respiratory Rate 20 08/29/16 13:28 Blood Pressure 121/66 08/29/16 13:28 Pulse Oxygen Saturation 94 08/29/16 13:28 Constitutional: No apparent distress, Alert Oriented to: Time, Person, Place - HEENT Head: Normal Eye: negative: Pale Conjunctiva, Scleral Icterus Nose: negative: Discharge, Deformity Respiratory: negative: Rales, Rhonchi Cardiovascular: Normal. negative: Irregular - GI Auscultation: Normal. negative: High pitched Palpation: Normal. negative: Enlarged liver Tenderness: Moderate, RUQ, Epigastric. negative: Guarding, Rebound, Rigidity Lacy's Sign: Positive - Musculoskeletal Back: negative: Ecchymosis, Laceration, CVA Tenderness Extremities: negative: Clubbing, Cyanosis, Edema - Lab Results 09/02/16 06:55 09/02/16 06:55 - Assessment/Plan (1) Cholecystitis with cholelithiasis K80.10 - CALCULUS OF GALLBLADDER W CHRONIC CHOLECYST W/O OBSTRUCTION Acute (2) Acute pancreatitis K85.90 - ACUTE PANCREATITIS WITHOUT NECROSIS OR INFECTION, UNSP Acute biliary unspecified K85.10 - Biliary acute pancreatitis without necrosis or infection (3) Leukocytosis D72.829 - ELEVATED WHITE BLOOD CELL COUNT, UNSPECIFIED Acute bandemia D72.825 - Bandemia Plan: Will recheck labs in AM. Patient will need to have cholecystectomy and IOC. Will plan on this once pancreatitis resolved.
--- NOTE | 2016-09-01 12:41 | PCM.GIPROG ---
Progress Note (GI) Chief Complaint: Sitting in the chair. Feels significantly better. The abdominal pain is less. He did feel little abdominal distended today. He has had bowel movement this morning. - Physical Exam Vital Signs: Temperature: 98.2 F (09/01/16 09:44) HR: 75 (09/01/16 09:44) RR: 20 (09/01/16 09:44) BP: 135/68 (09/01/16 09:44) Pulse Ox: 96 (09/01/16 09:44) General: Alert, Oriented x3, Cooperative, No acute distress HEENT: Normal, Other (No Jaundice). negative: Pallor Cardiovascular: Normal S1, Normal S2, Other (No S3 or S4.). negative: No murmurs Gastrointestinal: Soft, Bowel Sounds (Normal), Other (No ascites.). negative: Tender, Hepatosplenomegaly Extremities: Normal pulses. negative: Swelling, Edema Skin: Warm,Dry and Intact Neurological: Normal speech, Other (No focal neurologic deficits.) Psych/Mental Status: Normal Affect, Cooperative Result Diagrams: 08/31/16 09:11 08/31/16 09:11 - Impression and Plan (1) Acute pancreatitis Acute K85.90 - ACUTE PANCREATITIS WITHOUT NECROSIS OR INFECTION, UNSP Present on Admission: Yes biliary unspecified K85.10 - Biliary acute pancreatitis without necrosis or infection Comment: Biliary pancreatitis - discussed with patient and family why he will need gallbladder removed. Dr. Palomares has been notified by Dr. Jalloh, he will see the patient tomorrow. Lipase levels are improving. (2) Hypokalemia Acute E87.6 - HYPOKALEMIA Present on Admission: Yes Comment: Replace. (3) Lactic acid acidosis Acute E87.2 - ACIDOSIS Present on Admission: Yes Comment: Likely related to acute issues. Plan:Hydrate and monitor (4) Leukocytosis Acute D72.829 - ELEVATED WHITE BLOOD CELL COUNT, UNSPECIFIED Present on Admission: Yes Comment: Could be due to the pancreatitis but could also indicate infection. Plan:Cultures ordered. Empiric IV Zosyn. (5) SIRS (systemic inflammatory response syndrome) Acute R65.10 - SIRS OF NON-INFECTIOUS ORIGIN W/O ACUTE ORGAN DYSFUNCTION Present on Admission: Yes Comment: Plan: Monitor labs and vitals. hydrate with IVFs. (6) Fracture of fifth metacarpal bone of left hand Inactive S62.307A - UNSP FRACTURE OF FIFTH METACARPAL BONE, LEFT HAND, INIT initial encounter open other portion of metacarpal nondisplaced S62.397B - Other fracture of fifth metacarpal bone, left hand, initial encounter for open fracture Plan: 1. monitor CBC, CMP, lipase 2. Can cut down on IV fluids. 3. Have reviewed consultation from Dr. Palomares 4. Ambulate 5. Will follow along
--- NOTE | 2016-09-01 19:48 | GENMEDPROG ---
Chief Complaint: Pancreatitis, cholelithiasis, hypokalemia, abdominal pain, N&V Subjective Note: nausea and vomiting have resolved, abdominal pain is better also Currently: Denies: MEYERS, SOB, Nausea and Vomiting, Abdominal Pain DVT Prophylaxis: Yes - Physical Examination Vital Signs and I&O: Last Vital Signs Temp 99.7 F 09/01/16 18:09 Pulse 91 09/01/16 18:09 Resp 22 09/01/16 18:09 BP 142/55 L 09/01/16 18:09 Pulse Ox 96 09/01/16 18:09 Oxygen Pulse Oxygen Saturation 96 O2 Device Room Air Oxygen Flow Rate Fraction of Inspired Oxygen ( FIO2) Intake & Output 08/29/16 08/30/16 08/31/16 09/01/16 23:59 23:59 23:59 23:59 Intake Total 3000 2310 4307 3831 Output Total 325 1225 1950 1275 Balance 2675 1085 2357 2556 Patient's weight 96.706 kg 97.579 kg 97.721 kg General: Alert, Oriented x3, Cooperative, No acute distress, Weakness HEENT: PERRLA, EOMI, Anicteric Sclera, Mucous membr. moist/pink Neck: Non-tender, Full range of motion, Normal Trachea alignment, Normal inspection, No Masses palpable, No Thyromegaly palpable Lymphatics: Normal Respiratory: Normal - CTA, Diminished Cardiovascular: Regular rate and rhythm, Normal S1, No Gallops,Rubs/Murmurs, Normal S2 GI: Normal bowel sounds, Soft, Non tender, No masses, Hepatosplenomegaly Extremities/Musculoskeletal: Normal pulses, DJD, FROM, Motor 5/5 throughout. negative: Swelling, Edema Skin: Warm,Dry and Intact, No significant lesion Neurological: Normal speech, Normal tone, Other (hearing impaired) Psych/Mental Status: Normal Affect, Cooperative, Disoriented - Assessment (1) Acute pancreatitis Acute K85.90 - ACUTE PANCREATITIS WITHOUT NECROSIS OR INFECTION, UNSP Qualifiers: Pancreatitis type: biliary Acute pancreatitis complication: unspecified Qualified Code(s): K85.10 - Biliary acute pancreatitis without necrosis or infection Comment/Plan: Biliary pancreatitis - discussed with patient and family why he will need gallbladder removed. Dr. Palomares has been notified by Dr. Jalloh, he will see the patient tomorrow. Lipase levels are improving. (2) Hypokalemia Acute E87.6 - HYPOKALEMIA Comment/Plan: Replace. (3) Lactic acid acidosis Acute E87.2 - ACIDOSIS Comment/Plan: Likely related to acute issues. Plan:Hydrate and monitor (4) Leukocytosis Acute D72.829 - ELEVATED WHITE BLOOD CELL COUNT, UNSPECIFIED Qualifiers: Leukocytosis type: bandemia Qualified Code(s): D72.825 - Bandemia Comment/Plan: Could be due to the pancreatitis but could also indicate infection. Plan:Cultures ordered. Empiric IV Zosyn. (5) SIRS (systemic inflammatory response syndrome) Acute R65.10 - SIRS OF NON-INFECTIOUS ORIGIN W/O ACUTE ORGAN DYSFUNCTION Comment/Plan: Plan: Monitor labs and vitals. hydrate with IVFs. (6) Fracture of distal phalanx of finger of left hand Chronic S62.639A - DISP FX OF DISTAL PHALANX OF UNSP FINGER, INIT FOR CLOS FX Comment/Plan: This injury is 2 weeks old- it is an open fracture, comminuted , but should heal without treatment other than splinting for protection and antibiotics.
[2016-09-01] MEDS: KCl 10 mEq/100 ml Premix (Run) 10 MEQ/100 ML RTU IV SCH ×3 (20:22→21:54)
[2016-09-02] MEDS: PIPERACILLIN AND TAZOBACTAM 4.5 GM in D5W 100 ML IV SCH ×3 (00:27→16:06)
[2016-09-02] MEDS: KCl 10 mEq/100 ml Premix (Run) 10 MEQ/100 ML RTU IV SCH ×2 (02:43→04:49)
[2016-09-02] MEDS: NS 1,000 ML IV SCH ×2 (02:44→16:08)
[2016-09-02] MEDS ORDERED: SODIUM CHLORIDE 0.9% 3 ML FLUSH FLUSH PRN (03:21)
[2016-09-02] MEDS: PANTOPRAZOLE 40 MG TAB PO SCH (04:57)
[2016-09-02] MEDS: SODIUM CHLORIDE 0.9% 3 ML FLUSH FLUSH SCH ×2 (06:14→16:06)
[2016-09-02 07:17] LABS: AUTOMATED BASOPHIL 0.4 % (0-2); AUTOMATED EOSINOPHIL 0.9 % (0-5); AUTOMATED MONOCYTE 10.1 % (3-10); AUTOMATED NEUTROPHIL 73.6 % (45-76); MPV 8.2 fL (7.4-10.4)
[2016-09-02 07:54] LABS: BLOOD UREA NITROGEN 7 MG/DL (9-20); CALC CORRECTED 9.3 MG/DL (8.4-10.2); CALCIUM 8.1 MG/DL (8.4-10.2); CALCULATED OSMOLALITY 266 MOs/Kg (270-290); CHLORIDE 106 mEq/L (98-107); GLUCOSE 100 MG/DL (70-99); SODIUM LEVEL 139 mEq/L (137-146); TOTAL PROTEIN 5.6 G/DL (6.3-8.2)
[2016-09-02] MEDS: METOPROLOL TARTRATE 25 MG TAB PO SCH ×2 (08:19→21:11)
[2016-09-02] MEDS: TAMSULOSIN HCL 0.4 MG CAP PO SCH (08:19)
--- NOTE | 2016-09-02 10:38 | PCM.SURGRO ---
- Subjective Patient: Reports: No new complaints, Pain is less - Objective / Physical Exam Vital Signs: Temperature: 97.5 F (09/02/16 10:01) HR: 69 (09/02/16 10:01)RR: 18 (09/02/16 10: 01) BP: 119/52 (09/02/16 10:01)Pulse Ox: 98 (09/02/16 10:01) General: Alert, Cooperative, No acute distress Respiratory: Normal - CTA Cardiovascular: Regular rate and rhythm Gastrointestinal: Soft, Tender. negative: Guarding, Firm Back: Normal. negative: Ecchymosis, CVA Tenderness Extremities: negative: Tenderness, Edema, Clubbing Psych/Mental Status: Appropriate, Cooperative Neurological: Normal speech. negative: Drowsy, Somnolent Skin: Warm,Dry and Intact, No rashes, No breakdown Laboratory/Diagnostics Reviewed: 09/02/16 06:55 09/02/16 06:55 Laboratory Results - last 24 hr 09/02/16 09/02/16 06:55 06:55 WBC 9.9 RBC 4.05 L Hgb 11.9 L Hct 35.5 L MCV 88 MCH 29.3 MCHC 33.4 RDW 13.9 Plt Count 222 MPV 8.2 Neut % (Auto) 73.6 Lymph % (Auto) 15.0 L Foard % (Auto) 10.1 H Eos % (Auto) 0.9 Baso % (Auto) 0.4 Absolute Neuts (auto) 7.23 Absolute Lymphs (auto) 1.49 Sodium 139 Potassium 3.3 L Chloride 106 Carbon Dioxide 23 Anion Gap 13 BUN 7 L Creatinine 0.60 L Estimated GFR (MDRD) > 60 Glucose 100 H Calculated Osmolality 266 L Calcium 8.1 L Corrected Calcium 9.3 Total Bilirubin 1.4 H AST 31 ALT 101 H Alkaline Phosphatase 82 Total Protein 5.6 L Albumin 2.8 L Lipase 814 H - Assessment and Plan (1) Cholecystitis with cholelithiasis Acute K80.10 - CALCULUS OF GALLBLADDER W CHRONIC CHOLECYST W/O OBSTRUCTION Present on Admission: Yes (2) Acute pancreatitis Acute K85.90 - ACUTE PANCREATITIS WITHOUT NECROSIS OR INFECTION, UNSP Present on Admission: Yes biliary unspecified K85.10 - Biliary acute pancreatitis without necrosis or infection Biliary pancreatitis - discussed with patient and family why he will need gallbladder removed. Dr. Palomares has been notified by Dr. Jalloh, he will see the patient tomorrow. Lipase levels are improving. (3) Leukocytosis Acute D72.829 - ELEVATED WHITE BLOOD CELL COUNT, UNSPECIFIED Present on Admission: Yes bandemia D72.825 - Bandemia Plan: Will plan to do LC IOC once pancreatitis improves. Currently Lipase remains elevated. Bilirubin decreasing.Hopefully will be able to go ahead with curgery in the next couple of days.
--- NOTE | 2016-09-02 13:49 | GENMEDPROG ---
Currently: Denies: MEYERS, SOB, Nausea and Vomiting, Abdominal Pain DVT Prophylaxis: Yes - Physical Examination Vital Signs and I&O: Last Vital Signs Temp 97.5 F 09/02/16 10:01 Pulse 69 09/02/16 10:01 Resp 18 09/02/16 10:01 BP 119/52 L 09/02/16 10:01 Pulse Ox 98 09/02/16 10:01 Oxygen Pulse Oxygen Saturation 98 O2 Device Room Air Oxygen Flow Rate Fraction of Inspired Oxygen ( FIO2) Intake & Output 08/30/16 08/31/16 09/01/16 09/02/16 23:59 23:59 23:59 23:59 Intake Total 2310 4307 3831 150 Output Total 1225 1950 1275 1150 Balance 1085 2357 2556 -1000 Patient's weight 97.579 kg 97.721 kg 98.174 kg General: Alert, Cooperative, No acute distress Respiratory: Normal - CTA Cardiovascular: Regular rate and rhythm Extremities/Musculoskeletal: negative: Tenderness, Edema, Clubbing Skin: Warm,Dry and Intact, No rashes, No breakdown Psych/Mental Status: Appropriate, Cooperative - Assessment (1) Acute pancreatitis Acute K85.90 - ACUTE PANCREATITIS WITHOUT NECROSIS OR INFECTION, UNSP Qualifiers: Pancreatitis type: biliary Acute pancreatitis complication: unspecified Qualified Code(s): K85.10 - Biliary acute pancreatitis without necrosis or infection Comment/Plan: Biliary pancreatitis - discussed with patient and family why he will need gallbladder removed. Dr. Palomares has been notified by Dr. Jalloh, he will see the patient tomorrow. Lipase levels are improving. (2) Hypokalemia Acute E87.6 - HYPOKALEMIA Comment/Plan: Replace. (3) Lactic acid acidosis Acute E87.2 - ACIDOSIS Comment/Plan: Likely related to acute issues. Plan:Hydrate and monitor (4) Leukocytosis Acute D72.829 - ELEVATED WHITE BLOOD CELL COUNT, UNSPECIFIED Qualifiers: Leukocytosis type: bandemia Qualified Code(s): D72.825 - Bandemia Comment/Plan: Could be due to the pancreatitis but could also indicate infection. Plan:Cultures ordered. Empiric IV Zosyn. (5) SIRS (systemic inflammatory response syndrome) Acute R65.10 - SIRS OF NON-INFECTIOUS ORIGIN W/O ACUTE ORGAN DYSFUNCTION Comment/Plan: Plan: Monitor labs and vitals. hydrate with IVFs. (6) Fracture of distal phalanx of finger of left hand Chronic S62.329A - DISP FX OF DISTAL PHALANX OF UNSP FINGER, INIT FOR CLOS FX Comment/Plan: This injury is 2 weeks old- it is an open fracture, comminuted , but should heal without treatment other than splinting for protection and antibiotics.
[2016-09-03] MEDS: PIPERACILLIN AND TAZOBACTAM 4.5 GM in D5W 100 ML IV SCH ×4 (00:14→22:54)
[2016-09-03] MEDS: NS 1,000 ML IV SCH ×4 (02:03→20:17)
[2016-09-03] MEDS: PANTOPRAZOLE 40 MG TAB PO SCH (06:04)
[2016-09-03] MEDS: SODIUM CHLORIDE 0.9% 3 ML FLUSH FLUSH SCH ×2 (06:05→15:20)
[2016-09-03] MEDS: METOPROLOL TARTRATE 25 MG TAB PO SCH ×2 (08:01→20:17)
[2016-09-03] MEDS: TAMSULOSIN HCL 0.4 MG CAP PO SCH (08:01)
--- NOTE | 2016-09-03 11:00 | PCM.SURGRO ---
- Subjective Patient: Reports: No new complaints, Feels better - Objective / Physical Exam Vital Signs: Temperature: 97.9 F (09/03/16 10:00) HR: 71 (09/03/16 10:00)RR: 18 (09/03/16 10: 00) BP: 131/67 (09/03/16 10:00)Pulse Ox: 96 (09/03/16 10:00) General: Alert, Oriented x3, Cooperative, No acute distress Respiratory: Normal - CTA. negative: Rales, Rhonchi Cardiovascular: Regular rate and rhythm, No Gallops,Rubs/Murmurs Gastrointestinal: Soft. negative: Distended, Tender Back: Normal. negative: Ecchymosis Extremities: negative: Tenderness, Clubbing, Cyanosis Psych/Mental Status: Cooperative. negative: Agitated, Anxious Skin: Warm,Dry and Intact, No rashes, No breakdown Laboratory/Diagnostics Reviewed: 09/02/16 06:55 09/02/16 06:55 - Assessment and Plan (1) Cholecystitis with cholelithiasis Acute K80.10 - CALCULUS OF GALLBLADDER W CHRONIC CHOLECYST W/O OBSTRUCTION Present on Admission: Yes (2) Acute pancreatitis Acute K85.90 - ACUTE PANCREATITIS WITHOUT NECROSIS OR INFECTION, UNSP Present on Admission: Yes biliary unspecified K85.10 - Biliary acute pancreatitis without necrosis or infection Biliary pancreatitis - discussed with patient and family why he will need gallbladder removed. Dr. Palomares has been notified by Dr. Jalloh, he will see the patient tomorrow. Lipase levels are improving. (3) Leukocytosis Acute D72.829 - ELEVATED WHITE BLOOD CELL COUNT, UNSPECIFIED Present on Admission: Yes bandemia D72.825 - Bandemia Plan: Patient scheduled to have LC IOC in AM. The risks of bleeding, infection, bile leak and ductal injury as well as any cardiac/pulmonary complications were discussed with patient and daughter in law. All their questions were answered.
--- NOTE | 2016-09-03 12:19 | GENMEDPROG ---
Currently: Denies: MEYERS, SOB, Nausea and Vomiting, Abdominal Pain DVT Prophylaxis: Yes - Physical Examination Vital Signs and I&O: Last Vital Signs Temp 97.9 F 09/03/16 10:00 Pulse 71 09/03/16 10:00 Resp 18 09/03/16 10:00 BP 131/67 09/03/16 10:00 Pulse Ox 96 09/03/16 10:00 Oxygen Pulse Oxygen Saturation 96 O2 Device Room Air Oxygen Flow Rate Fraction of Inspired Oxygen ( FIO2) Intake & Output 08/31/16 09/01/16 09/02/16 09/03/16 23:59 23:59 23:59 23:59 Intake Total 4307 3831 1030 2068 Output Total 1950 1275 1650 400 Balance 2357 2556 -620 1668 Patient's weight 97.579 kg 97.721 kg 98.174 kg General: Alert, Oriented x3, Cooperative HEENT: Normal, PERRLA, EOMI, Anicteric Sclera, Mucous membr. moist/pink Neck: Non-tender, Full range of motion, Normal Trachea alignment, Normal inspection, No Masses palpable Lymphatics: Normal Respiratory: Normal - CTA. negative: Rales, Rhonchi Cardiovascular: Regular rate and rhythm, Normal S1, Normal S2 GI: Normal bowel sounds, Soft, Non tender, Hepatosplenomegaly. negative: Tenderness Extremities/Musculoskeletal: Normal pulses, DJD, FROM. negative: Edema Skin: Warm,Dry and Intact, No breakdown, No significant lesion Neurological: Normal speech, Strength at 5/5 X4 ext, Normal tone, Cranial nerves 3-12 NL Psych/Mental Status: Normal Affect, Cooperative - Assessment (1) Acute pancreatitis Acute K85.90 - ACUTE PANCREATITIS WITHOUT NECROSIS OR INFECTION, UNSP Qualifiers: Pancreatitis type: biliary Acute pancreatitis complication: unspecified Qualified Code(s): K85.10 - Biliary acute pancreatitis without necrosis or infection Comment/Plan: Biliary pancreatitis - discussed with patient and patient's son; Patient is concerned about aneshtesia effects. Scheduled for laparoscopic cholecystectomy in AM by Dr Palomares. (2) Hypokalemia Acute E87.6 - HYPOKALEMIA Comment/Plan: Replace. (3) Lactic acid acidosis Acute E87.2 - ACIDOSIS Comment/Plan: Likely related to acute issues. Plan:Hydrate and monitor (4) Leukocytosis Acute D72.829 - ELEVATED WHITE BLOOD CELL COUNT, UNSPECIFIED Qualifiers: Leukocytosis type: bandemia Qualified Code(s): D72.825 - Bandemia Comment/Plan: Could be due to the pancreatitis but could also indicate infection. Plan:Cultures ordered. Empiric IV Zosyn. (5) SIRS (systemic inflammatory response syndrome) Acute R65.10 - SIRS OF NON-INFECTIOUS ORIGIN W/O ACUTE ORGAN DYSFUNCTION Comment/Plan: Plan: Monitor labs and vitals. hydrate with IVFs. (6) Fracture of distal phalanx of finger of left hand Chronic S62.639A - DISP FX OF DISTAL PHALANX OF UNSP FINGER, INIT FOR CLOS FX Comment/Plan: This injury is 2 weeks old- it is an open fracture, comminuted , but should heal without treatment other than splinting for protection and antibiotics. Case Care Discussed with: Patient, Family, Nursing Staff, Resource Management Education/Counseling Given To: Patient, Family Member Education/Counseling Given Regarding: Diagnosis, Treatment, Prognosis Critical Care: Yes Couseling Time (>50% in counseling/coordination): Yes Code: 85068 (12+)
--- NOTE | 2016-09-03 18:33 | PCM.GIPROG ---
Progress Note (GI) Chief Complaint: Sitting comfortably in the chair. He is having full liquid dinner. I have reviewed Dr. Palomares is note. He is scheduled to have laparoscopic cholecystectomy tomorrow. - Physical Exam Vital Signs: Temperature: 97.6 F (09/03/16 17:38) HR: 79 (09/03/16 17:38) RR: 18 (09/03/16 17:38) BP: 140/68 (09/03/16 17:38) Pulse Ox: 99 (09/03/16 17:38) General: Alert, Oriented x3, Cooperative, No acute distress HEENT: Normal, Other (No Jaundice). negative: Pallor Cardiovascular: Normal S1, Normal S2, Other (No S3 or S4.). negative: No murmurs Gastrointestinal: Soft, Bowel Sounds (Normal), Other (No ascites.). negative: Tender, Hepatosplenomegaly Extremities: Normal pulses. negative: Swelling, Edema Skin: Warm,Dry and Intact Neurological: Normal speech, Other (No focal neurologic deficits.) Psych/Mental Status: Normal Affect, Cooperative Result Diagrams: 09/02/16 06:55 09/02/16 06:55 Additional Lab/DI Findings: Laboratory Tests 08/30/16 08/30/16 08/30/16 06:51 06:51 06:51 WBC Hgb Hct Plt Count Sodium Potassium Glucose Calculated Osmolality Calcium Corrected Calcium Total Bilirubin 4.7 H Direct Bilirubin 2.50 H AST 236 H ALT 310 H Alkaline Phosphatase Total Protein Albumin 3.3 L Lipase 4122 H 08/31/16 08/31/16 09/02/16 09:11 09:11 06:55 WBC 12.2 H Hgb 12.1 L Hct 36.0 L Plt Count 173 Sodium 139 Potassium 3.3 L Glucose 100 H Calculated Osmolality 266 L Calcium 8.1 L Corrected Calcium 9.3 Total Bilirubin 2.2 H 1.4 H Direct Bilirubin AST 80 H 31 ALT 179 H 101 H Alkaline Phosphatase 82 Total Protein 5.6 L Albumin 3.0 L 2.8 L Lipase 706 H 814 H - Impression and Plan (1) Acute pancreatitis Acute K85.90 - ACUTE PANCREATITIS WITHOUT NECROSIS OR INFECTION, UNSP Present on Admission: Yes biliary unspecified K85.10 - Biliary acute pancreatitis without necrosis or infection Comment: Biliary pancreatitis - discussed with patient and patient's son (2) Hypokalemia Acute E87.6 - HYPOKALEMIA Present on Admission: Yes Comment: Replace. (3) Lactic acid acidosis Acute E87.2 - ACIDOSIS Present on Admission: Yes Comment: Likely related to acute issues. Plan:Hydrate and monitor (4) Leukocytosis Acute D72.829 - ELEVATED WHITE BLOOD CELL COUNT, UNSPECIFIED Present on Admission: Yes bandemia D72.825 - Bandemia Comment: Could be due to the pancreatitis but could also indicate infection. Plan:Cultures ordered. Empiric IV Zosyn. (5) SIRS (systemic inflammatory response syndrome) Acute R65.10 - SIRS OF NON-INFECTIOUS ORIGIN W/O ACUTE ORGAN DYSFUNCTION Present on Admission: Yes Comment: Plan: Monitor labs and vitals. hydrate with IVFs. Plan: 1. ambulate 2. Proceed with laparoscopic cholecystectomy with intra cholangiogram. If intra op cholangiogram does show evidence of CBD stones, then we need ERCP. Hopefully, it appears that he has passed the stone. 3. Will follow along 4. Continue to monitor liver function tests 5. Watch for any delayed complications including pseudocysts.
[2016-09-03] MEDS ORDERED: POTASSIUM CHLORIDE 20 MEQ/15 ML ORAL SOLN PO ONE (20:49)
[2016-09-04] MEDS: SODIUM CHLORIDE 0.9% 3 ML FLUSH FLUSH SCH ×2 (05:27→17:03)
[2016-09-04] MEDS: NS 1,000 ML IV SCH ×2 (05:29→12:35)
[2016-09-04] MEDS: PANTOPRAZOLE 40 MG TAB PO SCH (05:29)
[2016-09-04] MEDS: METOPROLOL TARTRATE 25 MG TAB PO SCH ×2 (07:53→21:07)
[2016-09-04] MEDS: TAMSULOSIN HCL 0.4 MG CAP PO SCH (07:53)
[2016-09-04] MEDS: PIPERACILLIN AND TAZOBACTAM 4.5 GM in D5W 100 ML IV SCH ×3 (07:53→23:00)
[2016-09-04] MEDS ORDERED: hydrALAZINE 20 MG/ML VIAL IV PRN (08:36)
[2016-09-04] MEDS ORDERED: ISOVUE-300 (61%) 50 ML ONE (08:36)
[2016-09-04] MEDS ORDERED: ONDANSETRON HCL 4 MG ODT TAB PO PRN (08:36)
[2016-09-04] MEDS ORDERED: MEPERIDINE 25 MG/ML TUBEX IV PRN (08:36)
[2016-09-04] MEDS ORDERED: LABETALOL 20 MG/4 ML SYRINGE IV PRN (08:36)
[2016-09-04] MEDS ORDERED: BUPIVACAINE 0.25% 30 ML VIAL ONE (08:36)
[2016-09-04] MEDS ORDERED: HYDROmorphone 1 MG INJECTION IV PRN ×2 (08:36)
[2016-09-04] MEDS ORDERED: FENTANYL 100 MCG/2 ML VIAL IV PRN ×2 (08:36)
[2016-09-04] MEDS ORDERED: ONDANSETRON HCL 4 MG/2 ML VIAL IV PRN (08:36)
--- NOTE | 2016-09-04 08:40 | HIM.ANES ---
Anesthesia Evaluation & Plan - Focused Review of Systems Cardiac History: Yes: Hx Hypertension, Hx Cardiac Disorders, Hx Congestive Heart Failure HEENT: Yes: Hx Hearing Impairment, Cataracts, Cataract Removal ([place].) Gastrointestinal: Yes: Hx Gastroesophageal Reflux Disease, Hx Gastrointestinal Disorders Neurological/Musculoskeletal: No: HX Cerebrovascular Accident, Hx Dementia, Hx Seizures, Hx Neurological Disorders Psychological: No Hx Depression, No Hx Mental/Emotional Disorders Blood/Autoimmune: No: Hx Hepatitis (type) Smoking Status: Former smoker Past Social History: Denies: Alcohol Use, Substance Use Disorder Hx Stress Test (date): No Hx Echocardiogram (date): Yes Hx Chest Xray (date): Yes - Focused Physical Exam NPO since: Midnight Mallampati: Class II Thyromental Distance: Greater than 3 Neck: Full Range of Motion Dental: Removable Dental Work Cardiovascular/Chest: Normal Respiratory: Lungs clear Any relatives with a history of Malignant Hyperthermia?: No Other: Problem List Problem Status Onset Acute pancreatitis Acute Cholecystitis with cholelithiasis Acute Hypokalemia Acute Lactic acid acidosis Acute Leukocytosis Acute SIRS (systemic inflammatory response syndrome) Acute Fracture of distal phalanx of finger of left hand Chronic CBC/BMP/Other 09/02/16 06:55 09/02/16 06:55 Allergies Allergy/AdvReac Type Severity Reaction Status Date / Time Sulfa (Sulfonamide Allergy Rash-Genera Verified 08/29/16 13:34 Antibiotics) lized Home Medications Medication Instructions Recorded Last Taken Type Hydrochlorothiazide 25 mg PO DAILY 12/02/15 08/28/16 History Metoprolol Tartrate 25 mg PO BID 12/02/15 08/28/16 History Pantoprazole Sodium [Protonix] 40 mg PO DAILY 12/02/15 08/29/16 History Tamsulosin HCl [Flomax] 0.4 mg PO DAILY 12/02/15 08/28/16 History Height and Weight Patient's weight 97.069 kg Weight (Calculated Kilograms) 97.069 Vital Signs Temperature 97.8 F 09/04/16 07:59 Pulse Rate 82 09/04/16 07:59 Respiratory Rate 20 09/04/16 07:59 Blood Pressure 143/69 09/04/16 07:59 Pulse Oxygen Saturation 97 09/04/16 07:59 - Anesthetic Plan Anesthesia Type: General ASA Class: 2 -: I have examined this patient and reviewed the medical record. The patient has been assessed prior to anesthesia. Risks and benefits of anesthesia and anesthetic technique options have been discussed and all questions answered. The patient accepts the risk and desires me to proceed with the planned anesthetic.
[2016-09-04] MEDS ORDERED: [UNRECOGNIZED DRUG - SUPPLY] TOP ONE (09:20)
[2016-09-04] MEDS ORDERED: PROPOFOL 200 MG/20 ML VIAL IV ONE (10:00)
[2016-09-04] MEDS ORDERED: ONDANSETRON HCL 4 MG/2 ML VIAL IV ONE (10:00)
[2016-09-04] MEDS ORDERED: LIDOCAINE 100 MG PFS IV ONE (10:00)
[2016-09-04] MEDS ORDERED: GLYCOPYRROLATE 1 MG VIAL IM ONE (10:00)
[2016-09-04] MEDS ORDERED: ROCURONIUM 50 MG/5 ML VIAL IV ONE (10:00)
[2016-09-04] MEDS ORDERED: FENTANYL 100 MCG/2 ML VIAL IV ONE (10:00)
[2016-09-04] MEDS ORDERED: SUCCINYLCHOLINE 20 MG/1 ML INJ 10 ML MDV IV ONE (10:00)
[2016-09-04] MEDS ORDERED: NEOSTIGMINE 1 MG/1 ML (1:1000) INJ 10 ML MDV IM ONE (10:00)
--- NOTE | 2016-09-04 13:03 | SC.ANESPOS ---
Post-Anesthesia Note LOC: Fully Awake Post-Anesthesia Assessment: Awake, Returned to Baseline, Hemodynamically Stable , Pain Control Adequate Phase I & II Recovery Complete: Yes Apparent Anesthesia Complication: No : N - Vital Signs Blood Pressure: 141/59 Pulse: 72 Resp Rate: 20 O2 Sat: 97 Temp: 96.6 F
--- NOTE | 2016-09-04 13:13 | HIMOPRPT ---
DATE OF PROCEDURE: 09/04/16 PREOPERATIVE DIAGNOSES: Cholecystitis and cholelithiasis. POSTOPERATIVE DIAGNOSES: Cholecystitis and cholelithiasis. PROCEDURE: Laparoscopic cholecystectomy with intraoperative cholangiogram. SURGEON: Gregorio Palomares MD ANESTHESIA: General. COMPLICATIONS: None. ESTIMATED BLOOD LOSS: 30cc OPERATIVE NOTE: The patient was placed supine on the operative table. After induction of general anesthesia and endotracheal intubation, the patient was prepped and draped in the usual fashion. Time-out was taken. The patient was re- identified and the procedure was verified, and was given pre-operative antibiotics. An infraumbilical incision was made and a 5-mm Optiview trocar was placed without difficulties. The abdomen was insufflated with CO2 until a pressure of 15 mm HG was achieved. The camera was introduced and we inspected the abdominal cavity. The liver was smooth without any nodularities or masses. At this point, we placed two 5 mm ports in the right upper quadrant under direct visualization and an 11-mm port in the epigastric region. We were able to place a grasper on the dome, the other on the infundibulum of the gallbladder. The [place] of [place] was dissected using lateral retraction of the infundibulum thus exposing this critical angle between the cystic duct and CBD. The peritoneal attachment around the infundibulum of the gallbladder to the liver was dissected free using electrocautery. Thus giving a partial retrograde dissection. This allowed the visualization of the cystic duct and artery as they entered the gallbladder. Having developed this Critical View of Safety at the triangle of [place] we proceeded with our cholangiogram. A Wall clamp was placed across the body of the gallbladder, the tip of the catheter was inserted into the infundibulum. We then were able to flush this. Using the C -arm fluoroscopy unit, we performed a cholangiogram. In real time, we saw the passage of contrast throughout the biliary tree, common hepatic, common bile duct, and emptying readily into the duodenum. No filling defects were noted. This was a normal cholangiogram. At this point, the catheter was removed. Clips were placed on the cystic duct and artery and these structures were divided. A PDS loop was placed around the cystic duct stump. We then removed the gallbladder off the liver bed using electrocautery. The liver bed was oozing and we were able to manage this with Surgicel and Bio-glue. The liver bed then remained completely hemostatic. We removed the gallbladder and placed it into a laparoscopic retrieval bag. We irrigated the operative field and suctioned out the irrigation. A 19 Fr. Ralph drain was placed in the GB fossa. We then removed the ports allowing the CO2 to escape. The patient then had the large port site closed at the level of the fascia using #0-Vicryl sutures. The wounds were all irrigated and infiltrated with 0.25% Marcaine. The skin edges were approximated using 4-0 Monocryl and Dermabond. The patient tolerated this well. Sponge, needle, and instrument counts were correct.
--- NOTE | 2016-09-04 14:24 | GENMEDPROG ---
Chief Complaint: Feels okay postop. Minimal abdominal pain. Not hungry yet. Denies any shortness of breath or respiratory difficulty. Notes Reviewed: Yes Events from last night noted and discussed with Clinical Staff Current Medication List: Reviewed Currently: Denies: Cough, Wheezing, MEYERS, SOB, Nausea and Vomiting, Abdominal Pain DVT Prophylaxis: Yes - Physical Examination Vital Signs and I&O: Last Vital Signs Temp 97.9 F 09/04/16 13:45 Pulse 76 09/04/16 13:45 Resp 20 09/04/16 13:45 BP 143/67 09/04/16 13:45 Pulse Ox 96 09/04/16 13:45 Oxygen Pulse Oxygen Saturation 96 O2 Device Nasal Cannula Oxygen Flow Rate 1 Fraction of Inspired Oxygen ( 1 FIO2) Intake & Output 09/01/16 09/02/16 09/03/16 09/04/16 23:59 23:59 23:59 23:59 Intake Total 3831 1030 3985 255 Output Total 1275 1650 751 835 Balance 2556 -620 3234 -580 Patient's weight 97.721 kg 98.174 kg 97.069 kg General: Alert, Oriented x3, Cooperative, Mild distress, Well appearing, Well nourished HEENT: Normal, PERRLA, EOMI, Anicteric Sclera, Mucous membr. moist/pink Neck: Non-tender, Full range of motion, Normal Trachea alignment, Normal inspection, No Masses palpable Lymphatics: Normal Respiratory: Normal - CTA. negative: Rales, Rhonchi Cardiovascular: Regular rate and rhythm, Normal S1, Normal S2 GI: Soft, Non tender, Hepatosplenomegaly. negative: Normal bowel sounds, Tenderness Extremities/Musculoskeletal: Normal pulses, DJD, FROM. negative: Edema Skin: Warm,Dry and Intact, No breakdown, No significant lesion Neurological: Normal speech, Strength at 5/5 X4 ext, Normal tone, Cranial nerves 3-12 NL Psych/Mental Status: Normal Affect, Cooperative - Assessment (1) Acute pancreatitis Acute K85.90 - ACUTE PANCREATITIS WITHOUT NECROSIS OR INFECTION, UNSP Qualifiers: Pancreatitis type: biliary Acute pancreatitis complication: unspecified Qualified Code(s): K85.10 - Biliary acute pancreatitis without necrosis or infection Comment/Plan: Status post laparoscopic cholecystectomy. Doing well postop. Advance diet as tolerated. Increase activity and ambulate. (2) Cholecystitis with cholelithiasis Acute K80.10 - CALCULUS OF GALLBLADDER W CHRONIC CHOLECYST W/O OBSTRUCTION Qualifiers: Cholelithiasis location: gallbladder Cholecystitis acuity: acute Biliary obstruction: with biliary obstruction Qualified Code(s): K80.01 - Calculus of gallbladder with acute cholecystitis with obstruction Comment/Plan: Status post laparoscopic cholecystectomy. Doing well postop. Increase activity. Diet as tolerated. (3) Hypokalemia Acute E87.6 - HYPOKALEMIA Comment/Plan: Replete as needed (4) Lactic acid acidosis Acute E87.2 - ACIDOSIS Comment/Plan: Resolved. Doing well. (5) Leukocytosis Acute D72.829 - ELEVATED WHITE BLOOD CELL COUNT, UNSPECIFIED Qualifiers: Leukocytosis type: bandemia Qualified Code(s): D72.825 - Bandemia Comment/Plan: Could be due to the pancreatitis but could also indicate infection. Plan:Cultures ordered. Empiric IV Zosyn. (6) SIRS (systemic inflammatory response syndrome) Acute R65.10 - SIRS OF NON-INFECTIOUS ORIGIN W/O ACUTE ORGAN DYSFUNCTION Comment/Plan: Plan: Monitor labs and vitals. hydrate with IVFs. (7) Fracture of distal phalanx of finger of left hand Chronic S62.639A - DISP FX OF DISTAL PHALANX OF UNSP FINGER, INIT FOR CLOS FX Comment/Plan: This injury is 2 weeks old- it is an open fracture, comminuted , but should heal without treatment other than splinting for protection and antibiotics. Case Care Discussed with: Patient, Consultants, Family, Nursing Staff, Physical Therapy, Resource Management, Math Specialist
--- NOTE | 2016-09-04 16:00 | PCM.GIPROG ---
Progress Note (GI) Chief Complaint: Status post laparoscopic cholecystectomy with intra cholangiogram this morning. The intra cholangiogram did not show any evidence of CBD stones. Patient is currently lying down in bed. He did tolerate some lunch. Denies having any nausea or vomiting. - Physical Exam Vital Signs: Temperature: 97.9 F (09/04/16 13:45) HR: 76 (09/04/16 13:45) RR: 20 (09/04/16 13:45) BP: 143/67 (09/04/16 13:45) Pulse Ox: 96 (09/04/16 13:45) General: Alert, Oriented x3, Cooperative, No acute distress HEENT: Normal, Other (No Jaundice). negative: Pallor Cardiovascular: Normal S1, Normal S2, Other (No S3 or S4.). negative: No murmurs Gastrointestinal: Soft, Bowel Sounds (Normal), Other (No ascites.). negative: Tender, Hepatosplenomegaly Extremities: Normal pulses. negative: Swelling, Edema Skin: Warm,Dry and Intact Neurological: Normal speech, Other (No focal neurologic deficits.) Psych/Mental Status: Normal Affect, Cooperative Result Diagrams: 09/02/16 06:55 09/02/16 06:55 - Impression and Plan (1) Acute pancreatitis Acute K85.90 - ACUTE PANCREATITIS WITHOUT NECROSIS OR INFECTION, UNSP Present on Admission: Yes biliary unspecified K85.10 - Biliary acute pancreatitis without necrosis or infection Comment: Status post laparoscopic cholecystectomy. Doing well postop. Advance diet as tolerated. Increase activity and ambulate. (2) Hypokalemia Acute E87.6 - HYPOKALEMIA Present on Admission: Yes Comment: Replete as needed (3) Lactic acid acidosis Acute E87.2 - ACIDOSIS Present on Admission: Yes Comment: Resolved. Doing well. (4) Leukocytosis Acute D72.829 - ELEVATED WHITE BLOOD CELL COUNT, UNSPECIFIED Present on Admission: Yes bandemia D72.825 - Bandemia Comment: Could be due to the pancreatitis but could also indicate infection. Plan:Cultures ordered. Empiric IV Zosyn. (5) SIRS (systemic inflammatory response syndrome) Acute R65.10 - SIRS OF NON-INFECTIOUS ORIGIN W/O ACUTE ORGAN DYSFUNCTION Present on Admission: Yes Comment: Plan: Monitor labs and vitals. hydrate with IVFs. Plan: 1. advance diet as tolerated 2. Ambulate 3. If everything goes well can go home tomorrow. 4. Follow up in the case of any GI problems 5. Will sign off
--- NOTE | 2016-09-04 16:41 | DIRPT ---
CLINICAL DATA: Calculus cholecystitis EXAM: INTRAOPERATIVE CHOLANGIOGRAM TECHNIQUE: Cholangiographic images from the C-arm fluoroscopic device were submitted for interpretation post-operatively. Please see the procedural report for the amount of contrast and the fluoroscopy time utilized. COMPARISON: 08/29/2016 FINDINGS: Intraoperative cholangiogram performed during the laparoscopic cholecystectomy. The cystic duct has a low insertion on the CBD, normal variant. The biliary confluence, common hepatic duct, cystic duct, and common bile duct are patent. Contrast refluxes into the pancreatic duct proximally. No dilatation or obstruction. No significant filling defect. IMPRESSION: Patent biliary system. Electronically Signed By: Rox Chang M.D. On: 09/04/2016 16:38
[2016-09-05] MEDS: PANTOPRAZOLE 40 MG TAB PO SCH (05:23)
[2016-09-05] MEDS: SODIUM CHLORIDE 0.9% 3 ML FLUSH FLUSH SCH (05:38)
[2016-09-05 05:59] VITALS: BP 139/62; TEMP 98.2
[2016-09-05 06:11] VITALS: PULSE 74
[2016-09-05 06:47] LABS: AUTOMATED BASOPHIL 0.6 % (0-2); AUTOMATED EOSINOPHIL 0.8 % (0-5); AUTOMATED LYMPH 14.3 % (17-44); AUTOMATED MONOCYTE 8.2 % (3-10); AUTOMATED NEUTROPHIL 76.1 % (45-76); MPV 8.3 fL (7.4-10.4)
[2016-09-05 07:19] LABS: BLOOD UREA NITROGEN 7 MG/DL (9-20); CALC CORRECTED 9.3 MG/DL (8.4-10.2); CALCIUM 8.5 MG/DL (8.4-10.2); CALCULATED OSMOLALITY 268 MOs/Kg (270-290); CHLORIDE 103 mEq/L (98-107); GLUCOSE 122 MG/DL (70-99); SODIUM LEVEL 140 mEq/L (137-146); TOTAL PROTEIN 6.2 G/DL (6.3-8.2)
[2016-09-05] MEDS: PIPERACILLIN AND TAZOBACTAM 4.5 GM in D5W 100 ML IV SCH (08:07)
[2016-09-05] MEDS: METOPROLOL TARTRATE 25 MG TAB PO SCH (08:07)
[2016-09-05] MEDS: TAMSULOSIN HCL 0.4 MG CAP PO SCH (08:08)
--- NOTE | 2016-09-05 09:58 | PCM.DCS92 ---
- Final/Secondary Discharge Diagnosis (1) Acute pancreatitis Acute K85.90 - ACUTE PANCREATITIS WITHOUT NECROSIS OR INFECTION, UNSP Present on Admission: Yes biliary unspecified K85.10 - Biliary acute pancreatitis without necrosis or infection Comment: Doing well postop. Stable for discharge home. (2) Cholecystitis with cholelithiasis Acute K80.10 - CALCULUS OF GALLBLADDER W CHRONIC CHOLECYST W/O OBSTRUCTION Present on Admission: Yes gallbladder acute with biliary obstruction K80.01 - Calculus of gallbladder with acute cholecystitis with obstruction Comment: Status post laparoscopic cholecystectomy. Doing well postop. Increase activity. Diet as tolerated. (3) Hypokalemia Acute E87.6 - HYPOKALEMIA Present on Admission: Yes Comment: Replete as needed (4) Lactic acid acidosis Acute E87.2 - ACIDOSIS Present on Admission: Yes Comment: Resolved. Doing well. (5) Leukocytosis Acute D72.829 - ELEVATED WHITE BLOOD CELL COUNT, UNSPECIFIED Present on Admission: Yes bandemia D72.825 - Bandemia Comment: Could be due to the pancreatitis but could also indicate infection. Plan:Cultures ordered. Empiric IV Zosyn. (6) SIRS (systemic inflammatory response syndrome) Acute R65.10 - SIRS OF NON-INFECTIOUS ORIGIN W/O ACUTE ORGAN DYSFUNCTION Present on Admission: Yes Comment: Plan: Monitor labs and vitals. hydrate with IVFs. (7) Fracture of distal phalanx of finger of left hand Chronic S62.639A - DISP FX OF DISTAL PHALANX OF UNSP FINGER, INIT FOR CLOS FX Comment: This injury is 2 weeks old- it is an open fracture, comminuted, but should heal without treatment other than splinting for protection and antibiotics. Discharge Disposition: Home Discharge Condition: Improved Cognitive Discharge Status: Unimpaired Fuctional Discharge Status: Independent Physician Follow up/Referrals: Gregorio Palomares MD [Staff Physician] - 09/12/16 3:00 pm Vivienne Gale NP [Primary Care Provider] - 09/12/16 1:00 pm Home Medications / New Prescriptions: New Oxycodone HCl [Roxicodone] 5 mg PO Q6H PRN #30 tablet PRN Reason: Pain Continue Tamsulosin HCl [Flomax] 0.4 mg PO DAILY Pantoprazole Sodium [Protonix] 40 mg PO DAILY Hydrochlorothiazide 25 mg PO DAILY Metoprolol Tartrate 25 mg PO BID O2 Device: Room Air Oxygen to be used after Discharge: Continuous Diet at Discharge: As Tolerated, Heart Healthy Activity: No Restrictions Call Office For: Worsening Symptoms - DC Summary Notes Hospital Course Note:: Discharge summary on patient named WENCESLAO ELIZONDO admitted to [facility] on 08/29/16 by Timo Gutierrez MD. Date of discharge is []. Mr. Elizondo is a pleasant 76-year-old white male who presented emergency room with severe epigastric abdominal pain. He rated the pain and 9/10. He was found to have acute pancreatitis and on further evaluation was found to have multiple gallstones. He was admitted to the hospital made NPO and provided IV fluids IV analgesics. We had Dr. Jalloh with Gastroenterology and Dr. Palomares with General surgery see him in consultation. Once he was stable from pancreatitis standpoint he underwent a laparoscopic cholecystectomy. Postoperatively he has done well with no significant pain or complaints. He has tolerated a bland diet and at this point is stable for discharge home. He is to follow up with Dr. Palomares in 7-10 days and to call or return with any problems Total Time: 45 minutes - Physical Exam Vital Signs: Last Vital Signs Temp 98.2 F 09/05/16 05:59 Pulse 74 09/05/16 08:07 Resp 20 09/05/16 05:59 BP 139/62 09/05/16 08:07 Pulse Ox 95 09/05/16 05:59 Oxygen Pulse Oxygen Saturation 95 O2 Device Room Air Oxygen Flow Rate 1 Fraction of Inspired Oxygen ( 1 FIO2) Constitutional: No apparent distress, Alert, Well nourished, Well appearing Oriented to: Time, Person, Place - HEENT Head: Normal Eye: Normal. negative: Pale Conjunctiva, Scleral Icterus Oropharynx: Normal Tympanic Membrane: Normal Nose: negative: Discharge, Deformity - Respiratory/Cardiovascular Respiratory: Normal - CTA. negative: Rales, Rhonchi Cardiovascular: Normal - GI Auscultation: Normal. negative: High pitched Palpation: Normal. negative: Enlarged liver Tenderness: Moderate, RUQ, Epigastric. negative: Guarding, Rebound, Rigidity Lacy's Sign: Positive - Musculoskeletal Back: negative: Ecchymosis, Laceration, CVA Tenderness Extremities: negative: Clubbing, Cyanosis, Edema - Integumentary Skin: Warm, Dry Lymphatics: Normal - Neurologic Memory Impaired: Normal Motor Function: Normal Cranial Nerve: Normal Cerebellar: Normal Mood Description: Normal Thought: Coherent Perception: Normal
== END 2016-09-05 11:21 | disposition home or self-care (01) | DRG 417 ==
LOC: ED 13:06 → MPS3 21:44
PROVIDERS: ADMIT Internal Medicine; ATTEND Hospitalist
PROC: BF131ZZ Fluoroscopy of Gallbladder and Bile Ducts using Low Osmolar Contrast (ICD-10-PCS; 2016-09-04)
PROC: 0FT44ZZ Resection of Gallbladder, Percutaneous Endoscopic Approach (ICD-10-PCS; principal; 2016-09-04 09:05)
DX: K80.01 Calculus of gallbladder with acute cholecystitis with obstruction (principal); K85.10 Biliary acute pancreatitis without necrosis or infection; E87.2 Acidosis; R65.10 Systemic inflammatory response syndrome (SIRS) of non-infectious origin without acute organ dysfunction; I50.9 Heart failure, unspecified; K76.0 Fatty (change of) liver, not elsewhere classified; E87.6 Hypokalemia; Y93.9 Activity, unspecified; S62.639D Displaced fracture of distal phalanx of unspecified finger, subsequent encounter for fracture with routine healing; W23.0XXD Caught, crushed, jammed, or pinched between moving objects, subsequent encounter; I10 Essential (primary) hypertension; K21.9 Gastro-esophageal reflux disease without esophagitis; Z85.828 Personal history of other malignant neoplasm of skin; Z88.2 Allergy status to sulfonamides; Z79.899 Other long term (current) drug therapy; Z87.891 Personal history of nicotine dependence
CPT/HCPCS: 36415; 74177; 74300; 76705; 80053; 81001; 82140; 82248; 83605; 83690; 83735; 85007; 85025; 85027; 87040; 87086; 96361; 96374; 96375; 99284; A9698; G0237; J0330; J1170; J1940; J2001; J2270; J2405; J2543; J2710; J3010; J3480; J3490; J7060; S0020

== ENCOUNTER 2016-09-08 14:28 | Emergency (ER) | payer MEDICARE, MEDICAID ==
[2016-09-08 14:35] VITALS: BP 147/65; PULSE 86; TEMP 97.6; BMI 29.8
--- NOTE | 2016-09-08 15:02 | EDPRACDOC ---
- General Information Chief Complaint: Wound Stated Complaint: POST OP Time Seen by Provider: 09/08/16 14:43 Information Source: Patient Home Medications: Home Medications Hydrochlorothiazide 25 mg PO QAM 12/02/15 Metoprolol Tartrate 25 mg PO BID 12/02/15 Pantoprazole Sodium [Protonix] 40 mg PO QAM 12/02/15 Tamsulosin HCl [Flomax] 0.4 mg PO HS 12/02/15 Oxycodone HCl [Roxicodone] 5 mg PO Q6H PRN #30 tablet 09/05/16 Allergies/Adverse Reactions: Allergies Allergy/AdvReac Type Severity Reaction Status Date / Time Sulfa (Sulfonamide Allergy Rash-Genera Verified 09/08/16 14:34 Antibiotics) lized - History of Present Illness Onset: TODAY Wound Location: RUQ ABDOMEN Wound Type: Other Wound Discharge: Other Previously Treated In: [place] [facility], Surgery Current Wound Treatment: Other Associated Signs and Symptoms: None Other History: PT PRESENTS TODAY WITH CONCERNS OVER LEAKAGE AROUND HIS WOUND VAC. PT HAD CHOLECYSTECTOMY BY [facility] 5 DAYS AGO. PT STATES THAT TODAY HE NOTICED SOME FLUID LEAKAGE AND WAS CONCERNED IT MAY BE INFECTED. DENIES FEVER, PAIN, VOMITING. NO APPARENT DISTRESS. ED Past Medical History - History Reviewed Yes Nurses notes reviewed and agree except as marked - Patient Medical History Neurological History: Denies: Cerebrovascular Accident, Seizures, Dementia Cardiac History: Reports: Hypertension, Congestive Heart Failure GI/ History: Reports: Kidney Stones, Gastroesophageal Reflux Psychological History: Denies: Depression, Substance Use Disorder Systemic History: Reports: Cancer (skin cancer right ear) Surgical History: Reports: Cholecystectomy - Family Medical History Reports: Hypertension (Father), Cancer (Grandmother), Stroke (Mother), Cardiac Disorders (Father) - Social Medical History Smoking Status: Never smoker Social History: Denies: Substance Use Disorder EDM Review of Systems - Review of Systems ROS Negative Except as Marked: Yes All systems reviewed and were negative except as marked Constitutional: No Symptoms Reported Respiratory: No Symptoms Reported Cardiovascular: No Symptoms Reported Gastrointestinal: Other Genitourinary: No Symptoms Reported Neurological: No Symptoms Reported Musculoskeletal: No Symptoms Reported Integumentary: Wound - Physical Exam Constitutional: Alert (Awake), No apparent distress Oriented to: Time, Person, Place Last recorded Vital Signs: Last Vital Signs Temp 97.6 F 09/08/16 14:32 Pulse 86 09/08/16 14:32 Resp 20 09/08/16 14:32 BP 147/65 09/08/16 14:32 Pulse Ox 96 09/08/16 14:32 Oxygen Pulse Oxygen Saturation 96 O2 Device Oxygen Flow Rate Fraction of Inspired Oxygen ( FIO2) - HEENT Head: Normal Eye Exam: Normal Neck: Normal, Denies Pain, Midline - Respiratory/Cardiovascular Respiratory: Normal - CTA Cardiovascular: Normal - GI Auscultation: Normal Palpation: Normal Tenderness: Other (NOTED DRAINAGE TUBE TO RUQ, HEALING WELL; FLUID IS NOTED TO BE SEROUS FLUID; NO ERYTHEMA/PUS TO WOUND NOTED; NO LYMPHADENOPATHY; OTHER SURGICAL SCARS ALSO HEALING WELL) - Musculoskeletal Back: Normal Extremities: Normal - Integumentary Skin: Normal Lymphatics: Normal - Neurologic Cerebellar: Normal Mood Description: Normal Thought: Coherent Perception: Normal ED Wound Check Exam - Wound Detail Wound Location: RUQ ABDOMEN Healing: Well Discharge: Other (SEROUS) Erythema: None Decision Time to Discharge: 15:02 - Departure Disposition: Home Condition: Good Final Diagnosis: Visit for wound check Instructions: MRSA (Methicillin Resistant Staphylococcus Aureus) (ED) Education/Counseling Given To: Patient, Family Member Education/Counseling Given Regarding: Diagnosis, Treatment, Follow Up Referrals: Vivienne Gale NP [Primary Care Provider] - One Week Additional Instructions: THIS IS HEALING VERY WELL. OF COURSE, RETURN TO ED FOR ANY CONCERNS.
== END 2016-09-08 15:19 | disposition home or self-care (01) ==
LOC: ED 14:28
DX: Z48.01 Encounter for change or removal of surgical wound dressing (principal)
CPT/HCPCS: 99282